=== PATIENT | female | born 1955 | race Caucasian/White ===

== ENCOUNTER 2018-11-30 05:39 | Outpatient (CLI) | payer MEDICARE, OTHER ==
[~2018-11-30] VITALS: Ht 165 cm; Wt 96.8 kg
[~2018-11-30 05:39] MED LIST: AMIT25TA9 PO; B/P MED; CALC-9 PO; CTLP20T PO; ENAL20TA PO; ETOD200C9 PO; ETOD400T PO; GABA-488 PO; LEVO75TA6 PO; LVT.05T PO; OMEG-109 PO; PRAV40TA2 PO; TRAZ150T42 PO
[2018-11-30] MEDS ORDERED: ENAL20TA PO (14:17)
[2018-11-30] MEDS ORDERED: BUPR150T7 PO (14:17)
[2018-11-30] MEDS ORDERED: ESCI10TA55 PO (14:17)
[2018-11-30] MEDS ORDERED: CYCL10TA9 PO (14:17)
[2018-11-30] MEDS ORDERED: GBPN600T PO (14:17)
[2018-11-30] MEDS ORDERED: HYDR12.5 PO (14:17)
[2018-11-30] MEDS ORDERED: PANT40TA3 PO (14:17)
[2018-11-30] MEDS ORDERED: HYDR-3816 PO (14:17)
[2018-11-30] MEDS ORDERED: TRAZ150T72 PO (14:17)
== END 2018-11-30 14:35 | disposition home or self-care (01) ==
LOC: PREOP 05:39
PROVIDERS: ATTEND Surgery
DX: Z01.818 Encounter for other preprocedural examination (principal)

== ENCOUNTER → 2018-12-07 | Day surgery (SDC) | payer MEDICARE, OTHER ==
[~2018-12-07] VITALS: Ht 165 cm; Wt 96.8 kg
[~2018-12-07] MED LIST changes: +BUPR150T7 PO; +CYCL10TA9 PO; +ESCI10TA55 PO; +GBPN600T PO; +HURRICAINE EXT TUBE (BENZOCAINE) ONE; +HURRICAINE EXT TUBE (BENZOCAINE) XX PRN; +HYDR-3816 PO; +HYDR12.5 PO; +LACTATED RINGERS 1,000 ML IV ONE; +LACTATED RINGERS 1,000 ML IV SCH; +LACTATED RINGERS 1,000 ML IV STA; +MIDAZOLAM 2 MG/2 ML (VERSED) VIAL ONE; +PANT40TA3 PO; +PROPOFOL INJECTION 50 ML IV ONE; +SUCR1TAB36 PO; +TRAZ150T72 PO
[2018-12-07 09:45] VITALS: BP 131/94
--- NOTE | 2018-12-07 10:45 | Progress Note-Pre Operative ---
Pre-Operative Progress Note H&P Reviewed The H&P was reviewed, patient examined and no changes noted. Date Seen by Provider: Dec 07, 2018 Time Seen by Provider: 10:44 Date H&P Reviewed: Dec 07, 2018 Time H&P Reviewed: 10:44 Pre-Operative Diagnosis: dysphagia, gerd QUINCY FIGUEROA DO Dec 07, 2018 10:45
--- NOTE | 2018-12-07 11:56 | Progress Note-Pre Operative ---
Pre-Operative Progress Note H&P Reviewed The H&P was reviewed, patient examined and no changes noted. Date Seen by Provider: Dec 07, 2018 Time Seen by Provider: 11:55 Date H&P Reviewed: Dec 07, 2018 Time H&P Reviewed: 11:55 Pre-Operative Diagnosis: dysphagis, gerd QUINCY FIGUEROA DO Dec 07, 2018 11:56
[2018-12-07 12:15] VITALS: BP 156/79
--- NOTE | 2018-12-07 12:17 | Progress Note-Post Operative ---
Post-Operative Progess Note Surgeon (s)/Offset Printing Pressmen (s) Surgeon QUINCY FIGUEROA DO Offset Printing Pressmen: NA Pre-Operative Diagnosis dysphagis, gerd Post-Operative Diagnosis Hiatal Hernia Procedure & Operative Findings Date of Procedure 12/07/18 Procedure Performed/Findings EGD and Biopsy at Antrum and GE junction Anesthesia Type Per INDUSTRIAL SPECIALIST Estimated Blood Loss Estimated blood loss (mL): none Specimens/Packing Specimens Removed Biopsy of antrum and GE junction QUINCY FIGUEROA DO Dec 07, 2018 12:17
--- NOTE | 2018-12-07 12:19 | Discharge Inst-Simple/Standard ---
Discharge Inst-Standard Patient Instructions/Follow Up Plan of Care/Instructions/FU: 2 weeks Daryn Activity as Tolerated: Yes Discharge Diet: Regular Diet QUINCY FIGUREOA DO Dec 07, 2018 12:19
[2018-12-07 12:20] VITALS: BP 157/88
[2018-12-07 12:25] VITALS: BP 168/91
[2018-12-07 12:45] VITALS: BP 177/94
--- NOTE | 2018-12-07 12:50 | Anesthesia-General Post-Op ---
MAC Patient Condition Mental Status/LOC: Same as Preop Cardiovascular: Satisfactory Nausea/Vomiting: Absent Respiratory: Satisfactory Pain: Controlled Complications: Absent Post Op Complications Complications None Follow Up Care/Instructions Patient Instructions None needed. Anesthesiology Discharge Order Discharge Order Patient is doing well, no complaints, stable vital signs, no apparent adverse anesthesia problems. No complications reported per nursing. MERY GREGORY CRNA Dec 07, 2018 12:50
[2018-12-07 13:00] VITALS: BP 177/94
--- NOTE | 2018-12-07 19:18 | OPERATIVE REPORT ---
DATE OF SERVICE: 12/07/2018 PREOPERATIVE DIAGNOSES: Dysphagia, gastroesophageal reflux disease. POSTOPERATIVE DIAGNOSIS: Hiatal hernia. PROCEDURE: EGD with biopsy of the antrum and GE junction. SURGEON: Quincy Stearns DO ANESTHESIA: Per MUSEUM EXHIBIT DESIGNER. ESTIMATED BLOOD LOSS: None. COMPLICATIONS: None. INDICATIONS: The patient is a 63-year-old female with dysphagia and GERD. She understands risks and benefits of procedure and wished to proceed with procedure. Consent was signed in the chart. DESCRIPTION OF PROCEDURE: The patient was taken to the endoscopy suite, placed in left lateral recumbent position. Timeout was performed. Scope was inserted in the mouth, down the esophagus, stomach and into the duodenum without difficulty. There were no polyps, masses or ulcerations within the duodenum. Scope was then slowly retracted back into the stomach, which was further insufflated. Stomach had normal appearance. No polyps, masses or ulcerations. Biopsy of the antrum was obtained. Scope was retroflexed noting a moderate to large hiatal hernia, no other pathology noted. Scope was returned to its normal position, slowly withdrawn to the distal esophagus, which had normal appearance. Biopsy of the GE junction was obtained. Scope was then slowly retracted back. There were no polyps, masses or ulcerations within the remainder of the esophagus. Scope was slowly retracted back to completely remove noting no other pathology. RECOMMENDATIONS: We will add Carafate 1 gram four times a day. We will see her back in the office in two to three weeks to see how she is doing at that time and follow up on biopsies. Further recommendations pending biopsy results. Job ID: [id number] DocumentID: [id number] Dictated Date: 12/07/2018 12:26:27 Consumer Recruiter Date: 12/07/2018 16:33:15 Dictated By: QUINCY STEARNS DO
== END ==
LOC: ENDO 09:20
PROVIDERS: ATTEND Surgery
DX: K21.9 Gastro-esophageal reflux disease without esophagitis (principal); K44.9 Diaphragmatic hernia without obstruction or gangrene; I10 Essential (primary) hypertension; E66.9 Obesity, unspecified; F32.9 Major depressive disorder, single episode, unspecified; F41.9 Anxiety disorder, unspecified; G47.33 Obstructive sleep apnea (adult) (pediatric); Z79.899 Other long term (current) drug therapy; Z83.3 Family history of diabetes mellitus; Z82.49 Family history of ischemic heart disease and other diseases of the circulatory system; Z90.49 Acquired absence of other specified parts of digestive tract; Z68.36 Body mass index [BMI] 36.0-36.9, adult; Z79.891 Long term (current) use of opiate analgesic

== ENCOUNTER → 2019-01-14 | Outpatient (CLI) | payer MEDICARE, OTHER ==
[~2019-01-14] MED LIST changes: -HURRICAINE EXT TUBE (BENZOCAINE) ONE; -HURRICAINE EXT TUBE (BENZOCAINE) XX PRN; -LACTATED RINGERS 1,000 ML IV ONE; -LACTATED RINGERS 1,000 ML IV SCH; -LACTATED RINGERS 1,000 ML IV STA; -MIDAZOLAM 2 MG/2 ML (VERSED) VIAL ONE; -PROPOFOL INJECTION 50 ML IV ONE
--- NOTE | 2019-01-14 12:17 | Diagnostic Imaging Report ---
EXAM: Modified swallow INDICATION: Difficulty swallowing This exam is performed with the presence of the speech pathologist, Lilly. COMPARISON: There are no prior studies available for comparison. FINDINGS: The patient was given barium and different substances to swallow. This included honey, nectar, thin, barium and applesauce, barium and banana, barium and ground beef and barium on a cracker. She was able swallow the materials without difficulty. There was no aspiration or penetration. IMPRESSION: The swallowing mechanism is within normal limits. There is no evidence for aspiration or penetration. Dictated by: Dictated on workstation # [id number]
== END ==
LOC: RAD 09:49
PROVIDERS: ATTEND Surgery
DX: R13.10 Dysphagia, unspecified (principal)
CPT/HCPCS: 74230

== ENCOUNTER → 2019-04-13 | Outpatient (CLI) | payer MEDICARE, OTHER ==
--- NOTE | 2019-04-13 09:22 | Diagnostic Imaging Report ---
INDICATION: Routine screening. Comparison is made with prior mammogram from 02/15/2015 and 09/08/2012. 2-D and 3-D bilateral screening mammography was performed with CAD. Scattered fibroglandular densities are identified bilaterally. Occasional benign-appearing calcifications are identified. No mass or malignant appearing microcalcifications are seen. Axillae are unremarkable. IMPRESSION: BI-RADS Category 2 No mammographic features suspicious for malignancy are identified. ACR BI-RADS Category 2: Benign findings. Result letter will be mailed to the patient. Note: At least 10% of breast cancer is not imaged by mammography. Dictated by: Dictated on workstation # [id number]
== END ==
LOC: RAD 07:21
PROVIDERS: ATTEND Nurse Practitioner Primary Care
DX: Z12.31 Encounter for screening mammogram for malignant neoplasm of breast (principal)
CPT/HCPCS: 77067

== ENCOUNTER → 2019-05-17 | Outpatient (CLI) | payer MEDICARE, OTHER ==
[~2019-05-17] MED LIST changes: +HYDR-34 PO; -HYDR-3816 PO
--- NOTE | 2019-05-17 12:25 | Diagnostic Imaging Report ---
INDICATION: Postmenopausal state. COMPARISON: None available, baseline exam. FINDINGS: AP Spine L1-L4: [BMD (g/cm2): 1.420] [T-Score: 1.85] [Z-Score: 2.3] [BMD Previous: NA] [BMD % Change: NA] LT Hip Neck: [BMD (g/cm2): 1.078] [T-Score: 0.3] [Z-Score: 1.0] LT Hip Total: [BMD (g/cm2):1.102] [T-Score:0.8] [Z-Score: 1.2] [BMD Previous: NA] [BMD % Change: NA] RT Hip Neck: [BMD (g/cm2):1.003] [T-Score:-0.3] [Z-Score:0.5] RT Hip Total: [BMD (g/cm2):1.118] [T-score:0.9] [Z-Score:1.3] [BMD Previous:NA] [BMD % Change:NA] *Indicates significant change from prior examination based on 95% confidence level. World Health Organization criteria for BMD interpretation classify patients as Normal (T-score at or above -1.0), Osteopenic (T-score between -1.0 and -2.5) or Osteoporotic (T-score at or below -2.5). LIMITATIONS AND MODIFICATION: None. IMPRESSION: 1. Normal bone mineral density. 2. Baseline examination. 3. See below National Osteoporosis Foundation guidelines on when to potentially initiate pharmacologic therapy. Based on the National Osteoporosis Foundation Guidelines, pharmacologic treatment should be initiated in any of the following, unless clinical conditions suggest otherwise: * Any patient with prior fragility fracture of the hip or vertebrae. A spine fracture indicates 5X risk for subsequent spine fracture and 2X risk for subsequent hip fracture. * Osteoporosis (T-score <-2.5). * Postmenopausal women and men age 50 and older with low bone mass/osteopenia (T-score between -1.0 and -2.5) by DXA and 10-year major osteoporotic fracture greater than 20% or a 10-year probability of hip fracture greater than 3%. These fracture risks are supplied above in the FRAX score, if applicable. * Clinician judgement and/or patient preferences may indicate treatment for people with 10-year fracture probabilities above or below these levels. Dictated by: Dictated on workstation # [id number]
== END ==
LOC: RAD 11:24
PROVIDERS: ATTEND Nurse Practitioner Primary Care
DX: N95.9 Unspecified menopausal and perimenopausal disorder (principal)
CPT/HCPCS: 77080

== ENCOUNTER 2020-01-11 05:30 | Outpatient (RCR) | payer MEDICARE, OTHER ==
[~2020-01-11] VITALS: Ht 165 cm; Wt 90.9 kg
[~2020-01-11 05:30] MED LIST changes: +ENAL20TA16 PO; +HYDR-3820 PO; +HYDR12.56 PO; +LOSA25TA41 PO; -PANT40TA3 PO; +PANT40TA52 PO; +POTA10TA36 PO
== END 2020-01-11 09:44 | disposition home or self-care (01) ==
LOC: PREOP 05:30
PROVIDERS: ATTEND Specialist
DX: Z01.812 Encounter for preprocedural laboratory examination (principal); Z20.828 Contact with and (suspected) exposure to other viral communicable diseases
CPT/HCPCS: 87635

== ENCOUNTER 2020-01-13 06:13 | Day surgery (SDC) | payer MEDICARE, OTHER ==
[~2020-01-13] VITALS: Ht 165 cm; Wt 90.9 kg
[2020-01-13 06:15] VITALS: BP 134/81
[2020-01-13] MEDS ORDERED: MOXIFLOXACIN OPHTH SOLN 5 MG/ML 0.3 ML SYRINGE OP ONE (06:15)
[2020-01-13] MEDS ORDERED: LIDOCAINE PF 1% 2 ML VIAL IR PRN (06:15)
[2020-01-13] MEDS ORDERED: TIMOLOL MALEATE 0.5% 5 ML (TIMOPTIC) BTL OU PRN (06:15)
[2020-01-13] MEDS ORDERED: POVIDONE (BETADINE) OPHTH SOLN 5% 30 ML OP ONE (06:15)
[2020-01-13] MEDS: TETRACAINE 0.5% OPHTH SOLN 4 ML BTL (SINGLE DOSE ONLY) OU PRN ×4 (06:25→06:49)
[2020-01-13] MEDS: PHENYLEPHRINE 10% OPHTH (NEO-SYN) 5 ML BTL OU SCH ×3 (06:39→06:49)
[2020-01-13] MEDS ORDERED: METHYLERGONOVINE 0.2 MG/ML (METHERGINE) AMP ONE (06:39)
[2020-01-13] MEDS: TROPICAMIDE 1% OPH SOLN (MYDRIACYL) 15 ML BTL OP SCH ×3 (06:40→06:49)
[2020-01-13] MEDS ORDERED: MIDAZOLAM 2 MG/2 ML (VERSED) VIAL ONE (06:57)
--- NOTE | 2020-01-13 07:04 | Ophthalmologist Pre-Op Note ---
Pre-Operative Progress Note H&P Reviewed The H&P was reviewed, patient examined and no changes noted. Date H&P Reviewed: Jan 13, 2020 Time H&P Reviewed: 07:04 Pre-Op Dx Cataract, Left Eye KIMBERLY KEMP MD Jan 13, 2020 07:04
--- NOTE | 2020-01-13 07:26 | Ophthalmology Operative Report ---
Cataract removal/placement IOL PREOPERATIVE DIAGNOSIS: Cataract Left Eye POSTOPERATIVE DIAGNOSIS: Cataract Left Eye PROCEDURE: Cataract removal and placement of posterior chamber implant, left eye SURGEON: Curtis Kemp ANESTHESIA: Topical with sedation COMPLICATIONS: None ESTIMATED BLOOD LOSS: Minimal DESCRIPTION OF PROCEDURE: After proper informed consent was obtained, the patient, a 64 female, was taken to the Operating Room and the left eye was anesthetized with tetracaine. The left eye was then prepped and draped in the usual manner. A wire lid speculum was placed. A paracentesis was made at the left hand position. Preservative free lidocaine was injected into the anterior chamber followed by viscoelastic. A clear corneal incision was made in the temporal position. A capsulorrhexis was preformed and the central nuclear and cortical material were removed. The posterior capsule was polished and an Jose Antonio 11.5 AU00T0 was placed into the capsular bag. The residual viscoelastic was aspirated and balanced saline solution was injected into the anterior chamber. Moxifloxacin was injected into the anterior chamber. The wound was checked and found to be water tight. The patient tolerated the procedure well without complications. CURTIS KEMP MD Jan 13, 2020 07:26
[2020-01-13] MEDS ORDERED: acetaZOLAMIDE ER 500 MG CAP (DIAMOX SEQUELS) PO ONE (07:30)
[2020-01-13 07:35] VITALS: BP 124/89
--- NOTE | 2020-01-13 12:17 | Anesthesia-General Post-Op ---
MAC Patient Condition Mental Status/LOC: Same as Preop Cardiovascular: Satisfactory Nausea/Vomiting: Absent Respiratory: Satisfactory Pain: Controlled Complications: Absent Post Op Complications Complications None Follow Up Care/Instructions Patient Instructions None needed. Anesthesiology Discharge Order Discharge Order Patient is doing well, no complaints, stable vital signs, no apparent adverse anesthesia problems. No complications reported per nursing. MARIANELA LUDWIG CRNA Jan 13, 2020 12:17
== END 2020-01-13 07:35 | disposition home or self-care (01) ==
LOC: SDC 06:13
PROVIDERS: ATTEND Specialist
DX: H25.12 Age-related nuclear cataract, left eye (principal); I10 Essential (primary) hypertension; G47.33 Obstructive sleep apnea (adult) (pediatric); E03.9 Hypothyroidism, unspecified; E78.00 Pure hypercholesterolemia, unspecified; Z79.899 Other long term (current) drug therapy; Z83.3 Family history of diabetes mellitus
CPT/HCPCS: 66984; V2632

== ENCOUNTER 2020-01-17 05:37 | Outpatient (RCR) | payer MEDICARE, OTHER | END 2020-01-17 11:01 | disposition home or self-care (01) | LOC: PREOP 05:37 | PROVIDERS: ATTEND Specialist | DX: Z01.812 Encounter for preprocedural laboratory examination (principal); Z20.828 Contact with and (suspected) exposure to other viral communicable diseases | CPT/HCPCS: 87635 ==

== ENCOUNTER 2020-01-20 06:36 | Day surgery (SDC) | payer MEDICARE, OTHER ==
[~2020-01-20] VITALS: Ht 165 cm; Wt 90.9 kg
[2020-01-20 07:00] VITALS: BP 174/92
[2020-01-20] MEDS ORDERED: TIMOLOL MALEATE 0.5% 5 ML (TIMOPTIC) BTL OU PRN (07:00)
[2020-01-20] MEDS ORDERED: POVIDONE (BETADINE) OPHTH SOLN 5% 30 ML OP ONE (07:00)
[2020-01-20] MEDS ORDERED: MOXIFLOXACIN OPHTH SOLN 5 MG/ML 0.3 ML SYRINGE OP ONE (07:00)
[2020-01-20] MEDS ORDERED: LIDOCAINE PF 1% 2 ML VIAL IR PRN (07:00)
[2020-01-20] MEDS ORDERED: MIDAZOLAM 2 MG/2 ML (VERSED) VIAL ONE (07:01)
--- NOTE | 2020-01-20 07:07 | Ophthalmologist Pre-Op Note ---
Pre-Operative Progress Note H&P Reviewed The H&P was reviewed, patient examined and no changes noted. Date H&P Reviewed: Jan 20, 2020 Time H&P Reviewed: 07:07 Pre-Op Dx Cataract, Right Eye KIMBERLY KEMP MD Jan 20, 2020 07:07
[2020-01-20] MEDS: TETRACAINE 0.5% OPHTH SOLN 4 ML BTL (SINGLE DOSE ONLY) OU PRN ×4 (07:12→07:32)
[2020-01-20] MEDS: PHENYLEPHRINE 10% OPHTH (NEO-SYN) 5 ML BTL OU SCH ×3 (07:22→07:32)
[2020-01-20] MEDS: TROPICAMIDE 1% OPH SOLN (MYDRIACYL) 15 ML BTL OP SCH ×3 (07:22→07:32)
[2020-01-20] MEDS ORDERED: acetaZOLAMIDE ER 500 MG CAP (DIAMOX SEQUELS) PO ONE (08:00)
--- NOTE | 2020-01-20 08:34 | Ophthalmology Operative Report ---
Cataract removal/placement IOL PREOPERATIVE DIAGNOSIS: Cataract Right Eye POSTOPERATIVE DIAGNOSIS: Cataract Right Eye PROCEDURE: Cataract removal and placement of posterior chamber implant, right eye SURGEON: Curtis Kemp ANESTHESIA: Topical with sedation COMPLICATIONS: None ESTIMATED BLOOD LOSS: Minimal DESCRIPTION OF PROCEDURE: After proper informed consent was obtained, the patient, a 64 female, was taken to the Operating Room and the right eye was anesthetized with tetracaine. The right eye was then prepped and draped in the usual manner. A wire lid speculum was placed. A paracentesis was made at the left hand position. Preservative free lidocaine was injected into the anterior chamber followed by viscoelastic. A clear corneal incision was made in the temporal position. A capsulorrhexis was preformed and the central nuclear and cortical material were removed. The posterior capsule was polished and Jose Antonio 11.5 AU00T0 IOL was placed into the capsular bag. The residual viscoelastic was aspirated and balanced saline solution was injected into the anterior chamber. Moxifloxacin was injected into the anterior chamber. The wound was checked and found to be water tight. The patient tolerated the procedure well without complications. CURTIS KEMP MD Jan 20, 2020 08:34
[2020-01-20 08:45] VITALS: BP 169/88
--- NOTE | 2020-01-20 09:55 | Anesthesia-General Post-Op ---
MAC Patient Condition Mental Status/LOC: Same as Preop Cardiovascular: Satisfactory Nausea/Vomiting: Absent Respiratory: Satisfactory Pain: Controlled Complications: Absent Post Op Complications Complications None Follow Up Care/Instructions Patient Instructions None needed. Anesthesiology Discharge Order Discharge Order Patient is doing well, no complaints, stable vital signs, no apparent adverse anesthesia problems. No complications reported per nursing. MERY GREGORY CRNA Jan 20, 2020 09:55
== END 2020-01-20 11:04 | disposition home or self-care (01) ==
LOC: SDC 06:36
PROVIDERS: ATTEND Specialist
DX: H25.11 Age-related nuclear cataract, right eye (principal); I10 Essential (primary) hypertension; K21.9 Gastro-esophageal reflux disease without esophagitis; E03.9 Hypothyroidism, unspecified; E78.00 Pure hypercholesterolemia, unspecified; Z79.899 Other long term (current) drug therapy; Z83.3 Family history of diabetes mellitus
CPT/HCPCS: 66984; V2632

== ENCOUNTER → 2020-05-09 | Outpatient (CLI) | payer MEDICARE, OTHER ==
[~2020-05-09] MED LIST changes: +BUPR150T24 PO; -BUPR150T7 PO; +ESCI-2 PO; -ESCI10TA55 PO
--- NOTE | 2020-05-09 08:09 | Diagnostic Imaging Report ---
EXAMINATION: Lumbar spine at 736h. INDICATION: Back pain 3 views were obtained. There are no prior studies available for comparison. There has been prior posterior fusion at L4 and L5. The bilateral pedicle screws seen intact as does the inter body device. There is no fracture or acute bony abnormality identified. However there is at least moderate narrowing of the disc spaces at L3-L4 and L5-S1. The other intervertebral spaces are fairly well-maintained although there is minimal retrolisthesis of L3 with respect to L4 and of L2 with respect to L3. There is no sign of a paraspinal mass. There is mild symmetrical sclerosis of the sacroiliac joints. Impression: 1. There is no evidence for acute bony abnormality. 2. The postsurgical changes at L4-L5 appear stable. 3. If clinical concern regarding an underlying abnormality persists, then MRI would be recommended for additional study. Dictated by: Dictated on workstation # [id number]
--- NOTE | 2020-05-09 08:18 | Diagnostic Imaging Report ---
Right hip at 736 Indication: Hip pain AP and lateral views were obtained. There are no prior studies available for comparison. There is no fracture, dislocation or acute bony abnormality evident. There is at least moderate degenerative disease of the hip joint. Moderate sclerosis of the right sacroiliac joint is noted as well. The soft tissues are unremarkable. IMPRESSION: 1. There is no evidence for an acute bony abnormality. 2. There is at least moderate degenerative disease of the hip joint. Dictated by: Dictated on workstation # [id number]
== END ==
LOC: RAD 07:03
PROVIDERS: ATTEND Nurse Practitioner Family
DX: M16.11 Unilateral primary osteoarthritis, right hip (principal)
CPT/HCPCS: 72100; 73502

== ENCOUNTER → 2020-09-22 | Outpatient (CLI) | payer MEDICARE, OTHER ==
[~2020-09-22] MED LIST changes: -ETOD400T PO; +ETOD400T3 PO
--- NOTE | 2020-09-22 14:45 | Diagnostic Imaging Report ---
CLINICAL HISTORY: Left heel pain. COMPARISON: None. TECHNIQUE: 2 views of the left heel. FINDINGS: There is no acute fracture or dislocation of the left calcaneus. A bone spur is seen off the plantar surface of the left calcaneus. IMPRESSION: 1. No acute fracture or dislocation in the left calcaneus. 2. Bone spur along the plantar surface of the left calcaneus. Dictated by: Dictated on workstation # [id number]
== END ==
LOC: RAD 13:53
PROVIDERS: ATTEND Nurse Practitioner Family
DX: M77.32 Calcaneal spur, left foot (principal)
CPT/HCPCS: 73650

== ENCOUNTER → 2020-10-24 | Outpatient (CLI) | payer MEDICARE, OTHER ==
--- NOTE | 2020-10-24 18:45 | Diagnostic Imaging Report ---
EXAMINATION: PA and lateral chest at 6:25 p.m. INDICATION: Cough, history of Covid. There are no prior studies available for comparison. The heart size is within normal limits. There are alveolar/interstitial infiltrates involving both lungs, particularly the right lung. These findings are most likely due to pneumonia/atelectasis and may well be related to the patient's diagnosis of Covid 19. There is no significant pleural effusion identified. The mediastinum is not widened but there is a prominent air-fluid level in the retrocardiac region. I suspect this is secondary to a hiatal hernia. If further study is desired, then CT of the chest would be recommended. The osseous structures are intact. IMPRESSION: 1. There are alveolar/interstitial pulmonary infiltrates involving both lungs, particularly the right lung. These findings are most likely due to pneumonia/atelectasis may well be related to the patient's diagnosis of Covid 19. Clinical follow up is recommended. 2. There does appear to be a large hiatal hernia. Dictated by: Dictated on workstation # [id number]
== END ==
LOC: RAD 18:06
PROVIDERS: ATTEND Family Medicine
DX: R91.8 Other nonspecific abnormal finding of lung field (principal); Z86.16 Personal history of COVID-19
CPT/HCPCS: 71046

== ENCOUNTER → 2020-11-01 | Outpatient (CLI) | payer MEDICARE, OTHER ==
--- NOTE | 2020-11-01 15:40 | Diagnostic Imaging Report ---
INDICATION: Covid 19 pneumonia. TIME OF EXAM: 3:32 p.m. Correlation is made with prior chest 10/24/2020. Heart size is normal. Bilateral pulmonary infiltrates do show partial clearing since the prior exam. Minimal infiltrates remain in the right base. No effusion is seen. There is no pneumothorax. IMPRESSION: Partial clearing of bilateral pulmonary infiltrates when compared with examination from 10/24/2020. Dictated by: Dictated on workstation # [id number]
== END ==
LOC: RAD 15:11
PROVIDERS: ATTEND Nurse Practitioner Family
DX: R91.8 Other nonspecific abnormal finding of lung field (principal); U07.1 COVID-19; J12.82 Pneumonia due to coronavirus disease 2019
CPT/HCPCS: 71046

== ENCOUNTER → 2020-11-15 | Outpatient (CLI) | payer MEDICARE, OTHER ==
--- NOTE | 2020-11-15 19:31 | Diagnostic Imaging Report ---
INDICATION: Covid infection, follow-up. EXAMINATION: PA and lateral views of the chest were obtained at 6:56 p.m. COMPARISON: 11/01/2020. FINDINGS: The heart is mildly enlarged. There is some vascular congestion noted. Diffuse interstitial changes remain present and may be the residual of previous infection. There is no consolidation, pneumothorax or pleural fluid. There is a prominent hiatal hernia with air-fluid level in the retrocardiac region. IMPRESSION: There is some vascular congestion noted. There is diffuse interstitial prominence which may be the sequelae of previous infection. There is no new consolidation or pleural fluid. There is a prominent hiatal hernia. Dictated by: Dictated on workstation # [id number]
== END ==
LOC: RAD 18:32
PROVIDERS: ATTEND Nurse Practitioner Family
DX: U07.1 COVID-19 (principal); J12.82 Pneumonia due to coronavirus disease 2019; K44.9 Diaphragmatic hernia without obstruction or gangrene
CPT/HCPCS: 71046

== ENCOUNTER 2021-07-07 15:06 | Inpatient (IN) | payer MEDICARE, OTHER ==
[~2021-07-07] VITALS: Ht 165.1 cm; Wt 100.0 kg
[~2021-07-07 15:06] MED LIST changes: +CYCL10TA25 PO; -CYCL10TA9 PO; -POTA10TA36 PO; +POTA10TA37 PO
[2021-07-07] MEDS ORDERED: IBUPROFEN 800 MG (MOTRIN) TAB PO STA (15:24)
--- NOTE | 2021-07-07 15:28 | ED General ---
General Chief Complaint: General Problems/Pain Stated Complaint: WEAKNESS/DIZZINESS Source of Information: Patient, EMS History of Present Illness Date Seen by Provider: July 07, 2021 Time Seen by Provider: 15:15 Initial Comments PT ARRIVES VIA EMS FROM HOME--PT LIVES ALONE C/O GENERALIZED WEAKNESS C/O SORE THROAT DENIES SHORTNESS OF BREATH--BUT O2 SATS IN 80'S FOR EMS--UP TO MID 90'S ON O2 AT 2L/NC C/O HEADACHE HAD FEVER FOR EMS--PT HAS NOT CHECKED TEMP AT HOME TRIPPED AND FELL A COUPLE OF DAYS AGO AND LANDED ON LEFT RIBS AND LEFT ARM--DID NOT HIT HEAD OR HAVE LOSS OF CONSCIOUSNESS DENIES ANY LEFT ARM PAIN OTHER THAN MILD SORENESS FROM BRUISE ONLY. DENIES ANY CHEST PAIN OR ABDOMINAL PAIN DENIES NAUSEA/VOMITING/DIARRHEA DENIES COUGH DENIES URINARY SYMPTOMS PT HAS NOT HAD COVID OR FLU VACCINES HAD COVID PNEUMONIA 10/2020--NO HOSPITALIZATION PCP: DR. WHARTON Allergies and Home Medications Allergies Coded Allergies: No Known Drug Allergies (Unverified , 01/10/20) Patient Home Medication List Home Medication List Reviewed: Yes Amlodipine Besylate (Amlodipine Besylate) 5 Mg Tablet, 5 MG PO DAILY Prescribed by: AKIRA WHARTON on 07/10/21932 Ascorbate Calcium (Vitamin C) 500 Mg Tablet, 500 MG PO 1200, (Reported) Entered as Reported by: MARIMAR CHRISTINE on 07/09/211213 Last Action: Held Azithromycin (Azithromycin) 250 Mg Tablet, 250 MG PO DAILY@1100 Prescribed by: AKIRA WHARTON on 07/10/21932 Cefdinir (Cefdinir) 300 Mg Capsule, 300 MG PO BID Prescribed by: AKIRA WHARTON on 07/10/21932 Cholecalciferol (Vitamin D3) (Vitamin D3) 25 Mcg (1000 Unit) Capsule, 25 MCG PO 1200, (Reported) Entered as Reported by: MARIMAR CHRISTINE on 07/09/21 121 Last Action: Held Ergocalciferol (Vitamin D2) (Vitamin D2) 1,250 Mcg (53617 Unit) Capsule, 1,250 MCG PO SUN, (Reported) Entered as Reported by: MARIMAR CHRISTINE on 07/09/211213 Last Action: Held Escitalopram Oxalate (Escitalopram Oxalate) 10 Mg Tablet, 10 MG PO HS, (Reported) Entered as Reported by: IAN FONTAINE on 11/30/18 1417 Last Action: Reviewed Gabapentin (Gabapentin) 600 Mg Tablet, 600 MG PO QID PRN for PAIN-BREAKTHROUGH, (Reported) Entered as Reported by: IAN FONTAINE on 11/30/18 141 Last Action: Continued Hydrocodone/Acetaminophen (Hydrocodone-Acetamin 10-325 mg) 1 Each Tablet, 1 EACH PO Q4H PRN for PAIN-MODERATE (5-7), (Reported) Entered as Reported by: IAN FONTAINE on 01/10/20 1037 Last Action: Reviewed Lactobacillus Acidophilus/Pect (Acidophilus-Pectin Capsule) 75 Million Cell-100 Mg Capsule, 1 EACH PO TIDWM Prescribed by: AKIRA WHARTON on 07/10/21932 Levothyroxine Sodium (Levothyroxine Sodium) 75 Mcg Tablet, 75 MCG PO DAILY, (Reported) Entered as Reported by: KASEY MARTINEZ on 03/19/15 0934 Last Action: Held Losartan Potassium (Losartan Potassium) 25 Mg Tablet, 25 MG PO HS, (Reported) Entered as Reported by: AIN FONTAINE on 01/10/20 1037 Last Action: Reviewed Melatonin (Melatonin) 10 Mg Tablet, 10 MG PO HS, (Reported) Entered as Reported by: MARIMAR CHRISTINE on 07/09/21 1214 Last Action: Held Omeprazole Magnesium (Prilosec Otc) 20 Mg Tablet.dr, 20 MG PO HS, (Reported) Entered as Reported by: MARIMAR CHRISTINE on 07/09/21 1214 Last Action: Held Pantoprazole Sodium (Pantoprazole Sodium) 40 Mg Tablet.dr, 40 MG PO HS, (Reported) Entered as Reported by: IAN FONTAINE on 11/30/18 1417 Last Action: Reviewed Potassium Chloride (Potassium Chloride) 20 Meq Tab.er.prt, 20 MEQ PO DAILY Prescribed by: AKIRA WHARTON on 07/10/21932 Pravastatin Sodium (Pravastatin Sodium) 40 Mg Tablet, 40 MG PO HS, (Reported) Entered as Reported by: KASEY MARTINEZ on 03/19/15 0937 Last Action: Reviewed Trazodone HCl (Trazodone HCl) 150 Mg Tablet, 150 MG PO HS, (Reported) Entered as Reported by: IAN FONTAINE on 11/30/18 1417 Last Action: Held Discontinued Medications Bupropion HCl (Bupropion Xl) 150 Mg Tab.er.24h, 150 MG PO DAILY, (Reported) Discontinued Reason: No Longer Taking Entered as Reported by: IAN FONTAINE on 11/30/18 1417 Last Action: Discontinued Hydrochlorothiazide (Hydrochlorothiazide) 12.5 Mg Tablet, 12.5 MG PO DAILY, (Reported) Discontinued Reason: No Longer Taking Entered as Reported by: IAN FONTAINE on 01/10/20 1037 Last Action: Discontinued Potassium Chloride (Potassium Chloride) 10 Meq Tab.er.prt, 10 MEQ PO DAILY, (Reported) Discontinued Reason: No Longer Taking Entered as Reported by: IAN FONTAINE on 01/10/20 1037 Last Action: Discontinued Vitamin D (Vitamin D3) 10 Mcg (400 Unit) Tablet, 400 MCG PO 1200, (Reported) Discontinued Reason: Prescription changed Entered as Reported by: MARIMAR CHRISTINE on 07/09/21 1214 Last Action: New Order Review of Systems Review of Systems Constitutional: see HPI, fever, malaise, weakness EENTM: see HPI, throat pain Respiratory: see HPI; No cough, No short of breath Cardiovascular: see HPI; No chest pain Gastrointestinal: no symptoms reported; No abdominal pain, No diarrhea, No nausea, No vomiting Genitourinary: no symptoms reported; No decreased output, No dysuria Musculoskeletal: other (CHRONIC BACK AND KNEE PAIN, UNCHANGED) Skin: no symptoms reported; No rash Psychiatric/Neurological: See HPI, Headache; Denies Numbness, Denies Paresthesia, Denies Tingling, Denies Weakness Hematologic/Lymphatic: No Symptoms Reported Immunological/Allergic: no symptoms reported Past Qfndhri-Puvijr-Dhfaig Hx Patient Social History Tobacco Use?: No Use of E-Cig and/or Vaping dev: No Substance use?: No Alcohol Use?: No Pt feels they are or have been: No Immunizations Up To Date Influenza Vaccine Up-to-Date: No; Not Current Seasonal Allergies Seasonal Allergies: No Past Medical History Surgery/Hospitalization HX: HTN, DM, THYROID SX- KNEE, BACK, [facility] Surgeries: Yes (RIGHT KNEE ARTHROSCOPY, BILAT BUNIONECTOMY, LEFT HEEL SPUR) Eye Surgery, Gallbladder, Orthopedic Respiratory: Yes (COVID PNEUMONIA 10/2020--NO HOSPITALIZATION) Pneumonia, Sleep Apnea Currently Using CPAP: Yes Cardiac: Yes (MITRAL VALVE PROLAPSE PAST HX) High Cholesterol, Hypertension Neurological: Yes (PAST HX OF MIGRAINES) Headaches /Migraines [employer]IAN History: Menopausal Sexually Transmitted Disease: No HIV/AIDS: No Genitourinary: No Gastrointestinal: Yes (SPASTIC COLON) Gastroesophageal Reflux, Hiatal Hernia, Irritable Bowel Musculoskeletal: Yes (RIGHT HIP PAIN;BACK SX/SPINAL STENOSIS;CHRONIC KNEE PAIN- OPIATE DEPENDENT) Arthritis, Chronic Back Pain Endocrine: Yes Hypothyroidsim HEENT: Yes (GLASSES) Loss of Vision: Denies Hearing Impairment: Denies Cancer: No Psychosocial: Yes Anxiety, Depression Integumentary: No Blood Disorders: No Adverse Reaction/Blood Tranf: No (N/A) Family Medical History SOCIAL HISTORY: PAST SURGICAL HISTORY: -BILATERAL CATARACTS 01/2020 -EGD 12/2018 -COLONOSCOPY 03/2015 -CHOLECYSTECTOMY -BACK SURGERY -R KNEE SURGERY/ARTHROSCOPY 2019 -BILATERAL BUNIONECTOMY -LEFT HEEL SPUR Physical Exam Vital Signs Vital Signs - First Documented 07/07/21 15:09 Temp 37.9 Pulse 118 Resp 20 B/P (MAP) 148/94 (112) Pulse Ox 97 O2 Delivery Nasal Cannula O2 Flow Rate 2.00 Capillary Refill : Height, Weight, BMI Height: 5'5.00" Weight: 230lbs. oz. 104.074035zr; 35.55 BMI Method:Stated General Appearance: No Apparent Distress, WD/WN, Other (LETHARGIC, KEEPS EYES CLOSED, BUT DOES NOT APPEAR TO BE IN ANY DISCOMFORT OR DISTRESS. 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 II- XII Norm as Tested, Other (LETHARGIC) Skin: Normal Color, Warm/Dry, Ecchymosis (BRUISE TO LEFT UPPER ARM); No Rash Focused Exam Sepsis Stage: Sepsis Possible Source: Pulmonary Lactate Level 07/07/21 15:24: Lactic Acid Level 1.04 Time of Focused Exam: 16:45 Respiratory: Normal Breath Sounds, No Accessory Muscle Use, No Respiratory Distress Cardiovascular: Regular Rate, Rhythm, No Murmur Capillary Refill: Less Than 3 Seconds Skin: normal color, damp (TEMP COMING DOWN WITH TYLENOL AND MOTRIN AND NOW PT BEGINNING TO SWEAT) Lactic Acid Level Laboratory Tests Test 07/07/21 15:24 Lactic Acid Level 1.04 MMOL/L (0.50-2.00) Within 3hrs of presentation: Admin fluids, Admin ABX, Blood cultures prior to ABX's, Focus exam, Lactate level Progress/Results/Core Measures Suspected Sepsis SIRS Temperature: Pulse: Respiratory Rate: Blood Pressure / Mean: 07/07/21 15:24: Lactic Acid Level 1.04 Laboratory Tests 07/07/21 15:21: INR Comment 1.0 Results/Orders Lab Results Laboratory Tests Test 07/07/21 15:16 07/07/21 15:21 07/07/21 15:24 07/07/21 15:25 Range/Units Influenza Type A (RT-PCR) Not Detected Not Detecte Influenza Type B (RT-PCR) Not Detected Not Detecte SARS-CoV-2 RNA (RT-PCR) Not Detected Not Detecte Group A Streptococcus Screen NEGATIVE NEGATIVE White Blood Count 19.2 H 4.3-11.0 10^3/uL Red Blood Count 3.32 L 3.80-5.11 10^6/uL Hemoglobin 10.2 L 11.5-16.0 g/dL Hematocrit 31 L 35-52 % Mean Corpuscular Volume 94 80-99 fL Mean Corpuscular Hemoglobin 31 25-34 pg Mean Corpuscular Hemoglobin Concent 33 32-36 g/dL Red Cell Distribution Width 13.5 10.0-14.5 % Platelet Count 252 130-400 10^3/uL Mean Platelet Volume 11.1 9.0-12.2 fL Immature Granulocyte % (Auto) 1 % Neutrophils (%) (Auto) 91 H 42-75 % Lymphocytes (%) (Auto) 3 L 12-44 % Monocytes (%) (Auto) 4 0-12 % Eosinophils (%) (Auto) 0 0-10 % Basophils (%) (Auto) 0 0-10 % Neutrophils # (Auto) 17.6 H 1.8-7.8 10^3/uL Lymphocytes # (Auto) 0.6 L 1.0-4.0 10^3/uL Monocytes # (Auto) 0.8 0.0-1.0 10^3/uL Eosinophils # (Auto) 0.1 0.0-0.3 10^3/uL Basophils # (Auto) 0.0 0.0-0.1 10^3/uL Immature Granulocyte # (Auto) 0.1 0.0-0.1 10^3/uL Neutrophils % (Manual) 84 % Lymphocytes % (Manual) 4 % Monocytes % (Manual) 3 % Eosinophils % (Manual) 0 % Basophils % (Manual) 0 % Band Neutrophils 9 % Blood Morphology Comment NORMAL Erythrocyte Sedimentation Rate 25 0-30 MM/HR Prothrombin Time 13.5 12.2-14.7 SEC INR Comment 1.0 0.8-1.4 Activated Partial Thromboplast Time 34 24-35 SEC D-Dimer 1.01 H 0.00-0.49 UG/ML Sodium Level 136 135-145 MMOL/L Potassium Level 3.3 L 3.6-5.0 MMOL/L Chloride Level 99 98-107 MMOL/L Carbon Dioxide Level 23 21-32 MMOL/L Anion Gap 14 5-14 MMOL/L Blood Urea Nitrogen 9 7-18 MG/DL Creatinine 0.74 0.60-1.30 MG/DL Estimat Glomerular Filtration Rate 89 BUN/Creatinine Ratio 12 Glucose Level 104 70-105 MG/DL Calcium Level 8.4 L 8.5-10.1 MG/DL Corrected Calcium 8.9 8.5-10.1 MG/DL Magnesium Level 1.5 L 1.6-2.4 MG/DL Total Bilirubin 0.5 0.1-1.0 MG/DL Aspartate Amino Transf (AST/SGOT) 21 5-34 U/L Alanine Aminotransferase (ALT/SGPT) 13 0-55 U/L Alkaline Phosphatase 110 40-136 U/L Lactate Dehydrogenase 264 H 125-220 U/L Total Creatine Kinase 50 29-168 U/L Creatine Kinase MB 0.3 <6.6 NG/ML Myoglobin 37.9 10.0-92.0 NG/ML Troponin I < 0.028 <0.028 NG/ML C-Reactive Protein High Sensitivity 11.36 H 0.00-0.50 MG/DL B-Type Natriuretic Peptide 37.7 <100.0 PG/ML Total Protein 6.2 L 6.4-8.2 GM/DL Albumin 3.4 3.2-4.5 GM/DL Amylase Level 14 L 25-125 U/L Lipase < 4 L 8-78 U/L Procalcitonin 0.45 H <0.10 NG/ML Lactic Acid Level 1.04 0.50-2.00 MMOL/L Urine Color YELLOW Urine Clarity CLEAR Urine pH 6.5 5-9 Urine Specific [place] 1.010 L 1.016-1.022 Urine Protein NEGATIVE NEGATIVE Urine Glucose (UA) NEGATIVE NEGATIVE Urine Ketones NEGATIVE NEGATIVE Urine Nitrite NEGATIVE NEGATIVE Urine Bilirubin NEGATIVE NEGATIVE Urine Urobilinogen 1.0 < = 1.0 MG/DL Urine Leukocyte Esterase NEGATIVE NEGATIVE Urine RBC (Auto) 1+ H NEGATIVE Urine RBC 2-5 H /HPF Urine WBC NONE /HPF Urine Squamous Epithelial Cells NONE /HPF Urine Crystals NONE /LPF Urine Bacteria NEGATIVE /HPF Urine Casts NONE /LPF Urine Mucus NEGATIVE /LPF Urine Culture Indicated CULTURE PENDING Test 07/07/21 16:48 Range/Units Lab Scanned Report Referred Lab Report [id number] Micro Results Microbiology 07/07/21 Blood Culture - Preliminary, Resulted No growth 07/07/21 Urine Culture - Final, Complete NO GROWTH 07/07/21 Blood Culture - Preliminary, Resulted No growth 07/07/21 Throat Culture - Final, Complete No Beta Strep isolated My Orders Orders - SUN DAVILA DO Ed Iv/Invasive Line Start (07/07/21 15:24) Ekg Tracing (07/07/21 15:24) O2 (07/07/21 15:24) Monitor-Rhythm Ecg Trace Only (07/07/21 15:24) Chest 1 View, Ap/Pa Only (07/07/21 15:24) Amylase (07/07/21 15:24) Bnp Jrarett (07/07/21 15:24) Cbc With Automated Diff (07/07/21 15:24) Comprehensive Metabolic Panel (07/07/21 15:24) Creatine Kinase (07/07/21 15:24) Creatine Kinase Mb (07/07/21 15:24) Hs C Reactive Protein (07/07/21 15:24) Fibrin Degradation Products (07/07/21 15:24) Lactic Acid Analyzer (07/07/21 15:24) Lipase (07/07/21 15:24) Magnesium (07/07/21 15:24) Protime With Inr (07/07/21 15:24) Partial Thromboplastin Time (07/07/21 15:24) Rapid Strep A Screen (07/07/21 15:24) Ua Culture If Indicated (07/07/21 15:24) Erythrocyte Sedimentation Rate (07/07/21 15:24) Myoglobin Serum (07/07/21 15:24) Troponin I [place] (07/07/21 15:24) Procalcitonin (Pct) (07/07/21 15:24) LDH (07/07/21 15:24) Covid 19 Inhouse Test (07/07/21 15:24) Blood Culture (07/07/21 15:24) Urine Culture (07/07/21 15:24) Acetaminophen Tablet (Tylenol Tablet) (07/07/21 15:30) Ed Iv/Invasive Line Start (07/07/21 15:24) Vital Signs Adult Sepsis Patie Q15M (07/07/21 15:24) O2 (07/07/21 15:24) Remove Rings In Anticipation O (07/07/21 15:24) Influenza A And B By Pcr (07/07/21 15:24) Isolation Central Supply Req (07/07/21 15:24) Ed Iv/Invasive Line Start (07/07/21 15:24) Lactated Ringers (Lr 1000 Ml Iv Solution (07/07/21 15:30) Ibuprofen Tablet (Motrin Tablet) (07/07/21 15:24) Manual Differential (07/07/21 15:21) Ct Head Wo (07/07/21 15:55) Ct Ama Chest/Noang Abd-Pelv W (07/07/21 15:56) Iohexol Injection (Omnipaque 350 Mg/Ml 1 (07/07/21 16:00) Received Contrast (Hold Metformin- Contr (07/07/21 16:00) Ns (Ivpb) (Sodium Chloride 0.9% Ivpb Bag (07/07/21 16:00) Ceftriaxone 1 Gm Pre-Mix (Rocephin 1 Gm (07/07/21 16:30) Azithromycin Injection (Zithromax Inject (07/07/21 16:30) Medications Given in ED Vital Signs/I&O 07/07/21 07/07/21 15:09 15:30 Temp 37.9 Pulse 118 Resp 20 B/P (MAP) 148/94 (112) Pulse Ox 97 97 O2 Delivery Nasal Cannula Nasal Cannula O2 Flow Rate 2.00 2.00 Capillary Refill : Progress Note : Progress Note SEPSIS PROTOCOL INITIATED GIVEN IV FLUIDS, TYLENOL AND MOTRIN GIVEN ROCEPHIN + ZITHROMAX O2 SATS 87-88% ON ROOM AIR, UP TO 97% ON 2L/NC NO DETERIORATION IN PT'S CONDITION DURING ER STAY PT WISHES TO BE A FULL CODE ECG Initial ECG Impression Date: July 07, 2021 Initial ECG Impression Time: 15:39 Initial ECG Rate: 113 Initial ECG Rhythm: S.Tach Initial ECG Impression: Nonspecific Changes Initial ECG Comparisson: No Previous ECG Available Diagnostic Imaging Comments CT HEAD--PER RADIOLOGIST REPORT AT 1638 Comparison: None. Discussion: No intracranial hemorrhage, mass, midline shift or hydrocephalus. The ventricles and sulci are normal size and configuration for age. The visualized orbits, paranasal sinuses, mastoid air cells and calvarium are unremarkable. Impression: Negative head CT. CT CHEST ANGIOGRAM/ABDOMEN-PELVIS--PER RADIOLOGIST REPORT AT 1645 COMPARISON: None. FINDINGS: CTA CHEST: The pulmonary arteries are diagnostic to the lobar level. No filling defects are seen to indicate emboli. There is mild cardiomegaly. The aorta may be mildly ectatic but no dissection or janet aneurysm is seen. No mediastinal adenopathy is appreciated. There is a large hiatal hernia. There is no axillary adenopathy. There are multifocal airspace consolidations in the left upper lobe with associated groundglass opacities. Additional groundglass opacities are seen about the lungs, bilaterally. There is no pleural effusion and no pneumothorax. No central endobronchial lesions are seen. There are degenerative changes in the spine. No acute osseous abnormality is seen. CT ABDOMEN AND PELVIS: The liver demonstrates no focal lesions. Cholecystectomy clips are noted. The spleen appears normal. The pancreas is mildly atrophic but otherwise unremarkable. The adrenal glands appear normal. The kidneys demonstrate no enhancing lesions. There is a simple appearing small cyst in the inferior right kidney. The bowel loops are nondistended without obstruction. The appendix is normal. Multiple hyperdensities are seen in the cecum, likely ingested medication. There is moderate stool in the colon. A Durand catheter is in the nondistended urinary bladder. No free fluid or free air is seen. No acute osseous abnormality is seen. There is posterior fusion of L4-L5. There are degenerative changes in the lumbar spine, most severe at L3-L4. IMPRESSION: 1. No pulmonary embolus. 2. Multifocal airspace consolidation in the left upper lobe with groundglass opacities, bilaterally. This is most compatible with pneumonia. Recommend follow-up to resolution to exclude underlying neoplasm. 3. Large hiatal hernia. CXR--PER RADIOLOGIST REPORT AT 6 Comparison: 11/15/2020. Discussion: Single portable upright view of the chest was obtained. Dense consolidation noted within the left mid to lower lung consistent with pneumonia. Hiatal hernia is noted. Normal heart size. The right lung is well-aerated. No pleural fluid or pneumothorax. No osseous abnormality. Impression: Severe consolidation within the left mid to lower lung consistent with pneumonia. Reviewed: Reviewed by Ut Departure Communication (Admissions) 1647--SPOKE WITH DR. BHATIA, HOSPITALIST FOR DR. WHARTON'S PATIENTS, ACCEPTS PT FOR ADMIT Impression Primary Impression: Sepsis Additional Impressions: PNEUMONIA WITH HYPOXIA Hypomagnesemia Hypokalemia Disposition: ADMITTED INPATIENT Condition: Stable Admissions Decision to Admit Reason: Admit from ER (General) Decision to Admit/Date: July 07, 2021 Time/Decision to Admit Time: 16:50 Departure-Patient Inst. Referrals: AKIRA WHARTON MD (PCP/Family) Primary Care Physician Scripts Cefdinir (Cefdinir) 300 Mg Capsule 300 MG PO BID, #10 CAP Prov: AKIRA WHARTON MD 07/10/21 Potassium Chloride (Potassium Chloride) 20 Meq Tab.er.prt 20 MEQ PO DAILY, #10 TAB Prov: AKIRA WHARTON MD 07/10/21 Lactobacillus Acidophilus/Pect (Acidophilus-Pectin Capsule) 75 Million Cell-100 Mg Capsule 1 EACH PO TIDWM, #90 CAP Prov: AKIRA WHARTON MD 07/10/21 Amlodipine Besylate (Amlodipine Besylate) 5 Mg Tablet 5 MG PO DAILY, #30 TAB 3 Refills Prov: AKIRA WHARTON MD 07/10/21 Azithromycin (Azithromycin) 250 Mg Tablet 250 MG PO DAILY@1100, #4 TAB Prov: AKIRA WHARTON MD 07/10/21 SUN DAVILA DO July 07, 2021 15:28
[2021-07-07] MEDS ORDERED: ACETAMINOPHEN 500 MG TAB (TYLENOL) PO PRN ×2 (15:30→17:45)
[2021-07-07] MEDS ORDERED: LACTATED RINGERS 1,000 ML IV ONE (15:30)
[2021-07-07 15:37] LABS: BASOPHILS % (AUTO) 0 % (0-10); EOSINOPHILS # (AUTO) 0.1 10^3/uL (0.0-0.3); EOSINOPHILS % (AUTO) 0 % (0-10); HEMATOCRIT 31 % (35-52); HEMOGLOBIN 10.2 g/dL (11.5-16.0); LYMPHOCYTES # (AUTO) 0.6 10^3/uL (1.0-4.0); LYMPHOCYTES % (AUTO) 3 % (12-44); MEAN CORPUSCULAR HEMOGLOBIN 31 pg (25-34); MEAN CORPUSCULAR HGB CONC 33 g/dL (32-36); MEAN CORPUSCULAR VOLUME 94 fL (80-99); MEAN PLATELET VOLUME 11.1 fL (9.0-12.2); MONOCYTES # (AUTO) 0.8 10^3/uL (0.0-1.0); MONOCYTES % (AUTO) 4 % (0-12); NEUTROPHILS # (AUTO) 17.6 10^3/uL (1.8-7.8); NEUTROPHILS % (AUTO) 91 % (42-75); PLATELET COUNT 252 10^3/uL (130-400); WHITE BLOOD COUNT 19.2 10^3/uL (4.3-11.0)
[2021-07-07 15:41] LABS: BILIRUBIN,URINE NEGATIVE (NEGATIVE); CLARITY,URINE CLEAR; COLOR,URINE YELLOW; GLUCOSE, URINE (UA) NEGATIVE (NEGATIVE); KETONES,URINE NEGATIVE (NEGATIVE); LEUKOCYTE ESTERASE ,URINE NEGATIVE (NEGATIVE); NITRITE,URINE NEGATIVE (NEGATIVE); PH,URINE 6.5 (5-9); PROTEIN,URINE NEGATIVE (NEGATIVE)
[2021-07-07 15:45] LABS: ALBUMIN 3.4 GM/DL (3.2-4.5); CHLORIDE 99 MMOL/L (98-107); POTASSIUM 3.3 MMOL/L (3.6-5.0); SODIUM 136 MMOL/L (135-145)
[2021-07-07 15:46] LABS: AMYLASE 14 U/L (25-125); CALCIUM 8.4 MG/DL (8.5-10.1); FIBRIN DEGRADATION PRODUCTS 1.01 UG/ML (0.00-0.49); PROTHROMBIN TIME PATIENT 13.5 SEC (12.2-14.7)
[2021-07-07 15:47] LABS: GLUCOSE 104 MG/DL (70-105)
[2021-07-07 15:48] LABS: TOTAL PROTEIN 6.2 GM/DL (6.4-8.2)
[2021-07-07 15:48] LABS: BACTERIA,URINE NEGATIVE /HPF
[2021-07-07 15:49] LABS: BILIRUBIN,TOTAL 0.5 MG/DL (0.1-1.0); CARBON DIOXIDE 23 MMOL/L (21-32)
[2021-07-07 15:51] LABS: ALKALINE PHOSPHATASE 110 U/L (40-136); CREATININE SERUM 0.74 MG/DL (0.60-1.30); GFR ESTIMATED 89
[2021-07-07 15:52] LABS: BUN/CREATININE RATIO 12
[2021-07-07 15:54] LABS: ALANINE AMINOTRANSFERASE 13 U/L (0-55); MAGNESIUM 1.5 MG/DL (1.6-2.4)
[2021-07-07 15:55] LABS: CREATINE KINASE 50 U/L (29-168); LIPASE < 4 U/L (8-78)
[2021-07-07 15:56] LABS: ERYTHROCYTE SEDIMENTATION RATE 25 MM/HR (0-30)
[2021-07-07] MEDS ORDERED: IOHEXOL 350 MG/ML 100 ML (OMNIPAQUE 350) VIAL IV ONE (16:00)
[2021-07-07] MEDS ORDERED: NS 100 ML (IVPB) BAG IV ONE (16:00)
[2021-07-07] MEDS ORDERED: HOLD METFORMIN - RECEIVED CONTRAST 20 ML VIAL IV SCH (16:00)
[2021-07-07 16:02] LABS: CREATINE KINASE MB 0.3 NG/ML (<6.6)
[2021-07-07 16:30] LABS: BAND NEUTROPHILS 9 %; BASOPHILS % (MANUAL) 0 %; EOSINOPHILS % (MANUAL) 0 %; LYMPHOCYTES % (MANUAL) 4 %; MONOCYTES % (MANUAL) 3 %; NEUTROPHILS % (MANUAL) 84 %; RBC MORPH NORMAL
[2021-07-07] MEDS ORDERED: cefTRIAXone 1 GM PRE-MIX 50 ML IV ONE (16:30)
[2021-07-07] MEDS ORDERED: AZITHROMYCIN INJECTION 500 MG in NS (IVPB) 250 ML IV ONE (16:30)
--- NOTE | 2021-07-07 16:37 | Diagnostic Imaging Report ---
Procedure: CT head without contrast. Technique: Multiple contiguous axial images were obtained through the brain without the use of intravenous contrast. Auto Exposure Controls were utilized during the CT exam to meet ALARA standards for radiation dose reduction. Indication: Fall with headache. Comparison: None. Discussion: No intracranial hemorrhage, mass, midline shift or hydrocephalus. The ventricles and sulci are normal size and configuration for age. The visualized orbits, paranasal sinuses, mastoid air cells and calvarium are unremarkable. Impression: Negative head CT. Dictated by: Dictated on workstation # [id number]
--- NOTE | 2021-07-07 16:44 | Diagnostic Imaging Report ---
INDICATION: Fever, elev d-dimer, fall, hypoxia CTA CHEST, ABDOMEN AND PELVIS: Thin axial sections through the chest, abdomen and pelvis are obtained following intravenous contrast bolus. Multiplanar MIP images were reconstructed and reviewed. All CT scans use one or more of the following dose optimizing techniques: automated exposure control, MA and/or KvP adjustment based on patient size and exam type or iterative reconstruction. COMPARISON: None. FINDINGS: CTA CHEST: The pulmonary arteries are diagnostic to the lobar level. No filling defects are seen to indicate emboli. There is mild cardiomegaly. The aorta may be mildly ectatic but no dissection or janet aneurysm is seen. No mediastinal adenopathy is appreciated. There is a large hiatal hernia. There is no axillary adenopathy. There are multifocal airspace consolidations in the left upper lobe with associated groundglass opacities. Additional groundglass opacities are seen about the lungs, bilaterally. There is no pleural effusion and no pneumothorax. No central endobronchial lesions are seen. There are degenerative changes in the spine. No acute osseous abnormality is seen. CT ABDOMEN AND PELVIS: The liver demonstrates no focal lesions. Cholecystectomy clips are noted. The spleen appears normal. The pancreas is mildly atrophic but otherwise unremarkable. The adrenal glands appear normal. The kidneys demonstrate no enhancing lesions. There is a simple appearing small cyst in the inferior right kidney. The bowel loops are nondistended without obstruction. The appendix is normal. Multiple hyperdensities are seen in the cecum, likely ingested medication. There is moderate stool in the colon. A Durand catheter is in the nondistended urinary bladder. No free fluid or free air is seen. No acute osseous abnormality is seen. There is posterior fusion of L4-L5. There are degenerative changes in the lumbar spine, most severe at L3-L4. IMPRESSION: 1. No pulmonary embolus. 2. Multifocal airspace consolidation in the left upper lobe with groundglass opacities, bilaterally. This is most compatible with pneumonia. Recommend follow-up to resolution to exclude underlying neoplasm. 3. Large hiatal hernia. Dictated by: Dictated on workstation # [id number]
--- NOTE | 2021-07-07 16:44 | Diagnostic Imaging Report ---
Indication: Dyspnea and hypoxia. Comparison: 11/15/2020. Discussion: Single portable upright view of the chest was obtained. Dense consolidation noted within the left mid to lower lung consistent with pneumonia. Hiatal hernia is noted. Normal heart size. The right lung is well-aerated. No pleural fluid or pneumothorax. No osseous abnormality. Impression: Severe consolidation within the left mid to lower lung consistent with pneumonia. Dictated by: Dictated on workstation # [id number]
[2021-07-07] MEDS ORDERED: IBUPROFEN 800 MG (MOTRIN) TAB PO PRN (17:45)
[2021-07-07] MEDS ORDERED: ONDANSETRON 4 MG/2 ML (SDV) Z0FRAN IVP PRN (17:45)
[2021-07-07 17:52] VITALS: BP 124/76
[2021-07-07] MEDS: LACTATED RINGERS 1,000 ML IV SCH (18:50)
[2021-07-07] MEDS ORDERED: RT-ALBUTEROL/IPRATROPIUM 3 ML (DUONEB) VIAL INH PRN (19:30)
[2021-07-07 20:00] VITALS: BP 116/66
[2021-07-07] MEDS: RT-ALBUTEROL/IPRATROPIUM 3 ML (DUONEB) VIAL INH SCH (21:33)
[2021-07-08] VITALS (7 sets, daily range): BP systolic 117–144; BP diastolic 57–80
[2021-07-08] MEDS: LACTATED RINGERS 1,000 ML IV SCH ×4 (01:24→21:06)
[2021-07-08] MEDS: RT-ALBUTEROL/IPRATROPIUM 3 ML (DUONEB) VIAL INH SCH ×4 (02:09→21:42)
[2021-07-08 06:28] LABS: BASOPHILS % (AUTO) 0 % (0-10); EOSINOPHILS % (AUTO) 0 % (0-10); HEMATOCRIT 27 % (35-52); HEMOGLOBIN 8.6 g/dL (11.5-16.0); LYMPHOCYTES % (AUTO) 5 % (12-44); MEAN CORPUSCULAR HEMOGLOBIN 30 pg (25-34); MEAN CORPUSCULAR HGB CONC 32 g/dL (32-36); MEAN CORPUSCULAR VOLUME 94 fL (80-99); MEAN PLATELET VOLUME 10.6 fL (9.0-12.2); MONOCYTES # (AUTO) 0.7 10^3/uL (0.0-1.0); MONOCYTES % (AUTO) 4 % (0-12); NEUTROPHILS # (AUTO) 16.4 10^3/uL (1.8-7.8); NEUTROPHILS % (AUTO) 90 % (42-75); PLATELET COUNT 204 10^3/uL (130-400); WHITE BLOOD COUNT 18.2 10^3/uL (4.3-11.0)
[2021-07-08 06:43] LABS: CALCIUM 8.1 MG/DL (8.5-10.1)
[2021-07-08 06:45] LABS: TOTAL PROTEIN 5.3 GM/DL (6.4-8.2)
[2021-07-08 06:47] LABS: BILIRUBIN,TOTAL 0.4 MG/DL (0.1-1.0)
[2021-07-08 06:48] LABS: CREATININE SERUM 0.67 MG/DL (0.60-1.30)
--- NOTE | 2021-07-08 08:43 | History & Physical ---
History of Present Illness History of Present Illness Reason for visit/HPI PT IS A 65 Y/O FEMALE WHO IS A PATIENT IN MY MEDICAL PRACTICE USUALLY SEEN BY THE NURSE PRACTITIONER. SHE REPORTS THAT SHE STARTED TO FEEL POORLY FOR A FEW DAYS, WORSENING AND BECAME SO INCREASINGLY WEAK THAT SHE WAS ADMITTED TO THE HOSPITAL FOR PNEUMONIA WITH ELEVATED WHITE COUNT. Date of Admission July 07, 2021 at 16:48 Date Seen by a Provider: July 08, 2021 Time Seen by a Provider: 08:00 Attending Physician Akira Armstrong MD Admitting Physician Akira Armstrong MD Consult Allergies and Home Medications Allergies Coded Allergies: No Known Drug Allergies (Unverified , 01/10/20) Patient Home Medication List Home Medication List Reviewed: Yes Bupropion HCl (Bupropion Xl) 150 Mg Tab.er.24h, 150 MG PO DAILY, (Reported) Entered as Reported by: IAN FONTAINE on 11/30/181416 Last Action: Reviewed Escitalopram Oxalate (Escitalopram Oxalate) 10 Mg Tablet, 10 MG PO DAILY, (Reported) Entered as Reported by: IAN FONTAINE on 11/30/181416 Gabapentin (Gabapentin) 600 Mg Tablet, 600 MG PO QID, (Reported) Entered as Reported by: IAN FONTAINE on 11/30/181416 Last Action: Reviewed Hydrochlorothiazide (Hydrochlorothiazide) 12.5 Mg Tablet, 12.5 MG PO DAILY, (Reported) Entered as Reported by: IAN FONTAINE on 01/10/20 1037 Hydrocodone/Acetaminophen (Hydrocodone-Acetamin 10-325 mg) 1 Each Tablet, 1 EACH PO TID, (Reported) Entered as Reported by: IAN FONTAINE on 01/10/20 1037 Levothyroxine Sodium (Levothyroxine Sodium) 75 Mcg Tablet, 75 MCG PO DAILY, (Reported) Entered as Reported by: KASEY MARTINEZ on 03/19/15 0934 Losartan Potassium (Losartan Potassium) 25 Mg Tablet, 25 MG PO DAILY, (Reported) Entered as Reported by: IAN FONTAINE on 01/10/20 1037 Pantoprazole Sodium (Pantoprazole Sodium) 40 Mg Tablet.dr, 40 MG PO DAILY, (Reported) Entered as Reported by: IAN FONTAINE on 11/30/18 1417 Potassium Chloride (Potassium Chloride) 10 Meq Tab.er.prt, 10 MEQ PO DAILY, (Reported) Entered as Reported by: IAN FONTAINE on 01/10/20 1037 Pravastatin Sodium (Pravastatin Sodium) 40 Mg Tablet, 40 MG PO HS, (Reported) Entered as Reported by: KASEY MARTINEZ on 03/19/15 0937 Trazodone HCl (Trazodone HCl) 150 Mg Tablet, 150 MG PO HS, (Reported) Entered as Reported by: IAN FONTAINE on 11/30/18 1417 Past [id number] Hx Patient Social History 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 Tobacco Use?: No Use of E-Cig and/or Vaping dev: No Substance use?: No Alcohol Use?: No Pt feels they are or have been: No Immunizations Up To Date Date of Influenza Vaccine: Dec 14, 2017 Tetanus Booster (TDap): Unknown Seasonal Allergies Seasonal Allergies: No Current Status status: No status: No Advance Directives: No Communicates: Verbally Primary Language: Yemeni Preferred Spoken Language: Yemeni Is interpretation needed?: No Sensory deficits: Vision impairment Implanted or Applied Medical D: CPAP Past Medical History Surgeries: Eye Surgery, Gallbladder, Orthopedic Pneumonia, Sleep Apnea Currently Using CPAP: Yes High Cholesterol, Hypertension Headaches /Migraines 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 Sexually Transmitted Disease: No HIV/AIDS: No Gastroesophageal Reflux, Hiatal Hernia, Irritable Bowel Arthritis, Chronic Back Pain Hypothyroidsim Loss of Vision: Denies Hearing Impairment: Denies Anxiety, Depression Blood Disorders: No Adverse Reaction/Blood Tranf: No (N/A) Family Medical History Reviewed and Corrections made Heart Disease SOCIAL HISTORY: PAST SURGICAL HISTORY: -BILATERAL CATARACTS 01/2020 -EGD 12/2018 -COLONOSCOPY 03/2015 -CHOLECYSTECTOMY -BACK SURGERY -R KNEE SURGERY/ARTHROSCOPY 2019 -BILATERAL BUNIONECTOMY -LEFT HEEL SPUR Review of Systems Constitutional: No chills; fever, malaise, weakness EENTM: No hoarseness, No throat pain Respiratory: cough, dyspnea on exertion, short of breath Cardiovascular: chest pain Gastrointestinal: No abdominal pain, No constipation, No diarrhea, No nausea, No vomiting Genitourinary: no symptoms reported Musculoskeletal: No muscle weakness Skin: no symptoms reported Psychiatric/Neurological: Denies Anxiety, Denies Depressed, Denies Weakness All Other Systems Reviewed Negative Unless Noted: Yes Physical Exam Vital Signs Vital Signs - First Documented 07/07/21 15:09 Temp 37.9 Pulse 118 Resp 20 B/P (MAP) 148/94 (112) Pulse Ox 97 O2 Delivery Nasal Cannula O2 Flow Rate 2.00 Capillary Refill : Less Than 3 Seconds Height, Weight, BMI Height: 5'5.00" Weight: 230lbs. oz. 104.885595ix; 36.68 BMI Method:Stated General Appearance: No Apparent Distress, WD/WN HEENT: PERRL/EOMI, Pharynx Normal Neck: Full Range of Motion, Non Tender, Supple Respiratory: Chest Non Tender, Crackles (LEFT LOWER LOBE AND LEFT UPPER), Decreased Breath Sounds Cardiovascular: Regular Rate, Rhythm Gastrointestinal: Normal Bowel Sounds, Non Tender, Soft Rectal: Deferred Extremity: Normal Capillary Refill, Non Tender, No Calf Tenderness, No Pedal Edema Neurologic/Psychiatric: Alert, Oriented x3, No Motor/Sensory Deficits, Normal Mood/Affect Skin: Normal Color, Warm/Dry Lymphatic: No Adenopathy Assessment/Plan Assessment and Plan LEFT UPPER LOBE PNEUMONIA RESPIRATORY DISTRESS LEUKOCYTOSIS ANEMIA HYPOKALEMIA ELEVATED PROCALCITONIN ELEVATED CRP HYPERTENSION DEPRESSION GERD INSOMNIA FALL AT HOME LEFT UPPER LOBE PNEUMONIA WITH RESPIRATORY DISTRESS - IV ANTIBIOTICS, AZITHROMYCIN AND CEFDINIR LEUKOCYTOSIS - IMPROVED FROM ADMISSION, MONITOR LABS ANEMIA - WORSENING - MONITOR, MAY BE DILUTION. HYPOKALEMIA - REPLACE ORALLY ELEVATED PROCALCITONIN ELEVATED CRP HYPERTENSION - MONITOR PRESSURES, RESTART MEDICATIONS ONCE RECONCILED. DEPRESSION - MONITOR PRESSURES, RESTART MEDICATIONS ONCE RECONCILED. GERD - PPI THERAPY INSOMNIA - FALL AT HOME DVT PROPHYLAXIS WITH SCD'S GI PROPHYLAXIS WITH PPI THERAPY Admission Diagnosis LEFT UPPER LOBE PNEUMONIA RESPIRATORY DISTRESS LEUKOCYTOSIS ANEMIA HYPOKALEMIA ELEVATED PROCALCITONIN ELEVATED CRP HYPERTENSION DEPRESSION GERD INSOMNIA FALL AT HOME Admission Status: Inpatient Order (span 2 midnights) Reason for Inpatient Admission: INPATIENT ADMISSION FOR PNEUMONIA WITH RESPIRATORY DISTRESS AKIRA ARMSTRONG MD July 08, 2021 08:43
[2021-07-08] MEDS: cefTRIAXone 1 GM PRE-MIX 50 ML IV SCH (08:44)
[2021-07-08] MEDS ORDERED: KCL 20 MEQ TAB (K-DUR) PO NR (09:01)
[2021-07-08] MEDS ORDERED: AZITHROMYCIN INJECTION 500 MG in NS (IVPB) 250 ML IV SCH (10:00)
[2021-07-08] MEDS: LACTOBACILLUS ACIDOPHILUS (PROBIOTIC) CAPSULE PO SCH ×3 (13:34→17:33)
[2021-07-09] MEDS: RT-ALBUTEROL/IPRATROPIUM 3 ML (DUONEB) VIAL INH SCH ×4 (02:45→21:07)
[2021-07-09 03:49] VITALS: BP 164/79
[2021-07-09] MEDS: LACTATED RINGERS 1,000 ML IV SCH ×3 (05:17→19:50)
[2021-07-09 05:55] LABS: BASOPHILS % (AUTO) 0 % (0-10); EOSINOPHILS % (AUTO) 0 % (0-10); HEMATOCRIT 26 % (35-52); HEMOGLOBIN 8.2 g/dL (11.5-16.0); LYMPHOCYTES % (AUTO) 8 % (12-44); MEAN CORPUSCULAR HEMOGLOBIN 29 pg (25-34); MEAN CORPUSCULAR HGB CONC 31 g/dL (32-36); MEAN CORPUSCULAR VOLUME 94 fL (80-99); MEAN PLATELET VOLUME 10.4 fL (9.0-12.2); MONOCYTES # (AUTO) 0.3 10^3/uL (0.0-1.0); MONOCYTES % (AUTO) 3 % (0-12); NEUTROPHILS # (AUTO) 10.1 10^3/uL (1.8-7.8); NEUTROPHILS % (AUTO) 88 % (42-75); PLATELET COUNT 206 10^3/uL (130-400); WHITE BLOOD COUNT 11.4 10^3/uL (4.3-11.0)
[2021-07-09 06:12] LABS: POTASSIUM 3.4 MMOL/L (3.6-5.0)
[2021-07-09 06:13] LABS: CALCIUM 8.5 MG/DL (8.5-10.1)
[2021-07-09 06:14] LABS: TOTAL PROTEIN 5.5 GM/DL (6.4-8.2)
[2021-07-09 06:16] LABS: BILIRUBIN,TOTAL 0.2 MG/DL (0.1-1.0)
[2021-07-09 06:18] LABS: CREATININE SERUM 0.63 MG/DL (0.60-1.30)
[2021-07-09 08:21] VITALS: BP 171/73
--- NOTE | 2021-07-09 08:23 | Diagnostic Imaging Report ---
EXAMINATION: Chest 2 view HISTORY: Pneumonia COMPARISON: 07/07/2021 FINDINGS: Airspace opacities in the left lung have improved. There is a small left effusion. No pneumothorax. Heart size is normal. There is a hiatal hernia. IMPRESSION: 1. Improving airspace opacities in the left lung consistent with pneumonia. Dictated by: Dictated on workstation # [id number]
[2021-07-09] MEDS: cefTRIAXone 1 GM PRE-MIX 50 ML IV SCH (08:29)
[2021-07-09] MEDS: LOSARTAN 25 MG (COZAAR) TAB PO SCH (08:29)
[2021-07-09] MEDS: LACTOBACILLUS ACIDOPHILUS (PROBIOTIC) CAPSULE PO SCH ×3 (08:29→17:15)
--- NOTE | 2021-07-09 08:36 | Progress Note ---
Subjective Subjective Date Seen by Provider: July 09, 2021 Time Seen by Provider: 08:00 PT REPORTS THAT SHE FEELS MUCH BETTER TODAY. SHE DENIES CHEST PAIN SHE DENIES SHORTNESS OF BREATH OFF OF THE OXYGEN. Review of Systems General: No Chills; Fatigue Pulmonary: No Dyspnea; Cough Cardiovascular: No: Chest Pain, Palpitations Gastrointestinal: No: Nausea, Abdominal Pain Genitourinary: No Dysuria Neurological: Weakness; No: Confusion All Other Systems Reviewed All Other Systems Reviewed: Yes Objective Exam Vital Signs Vital Signs Date Time Temp Pulse Resp B/P (MAP) Pulse Ox O2 Delivery O2 Flow Rate FiO2 07/09/21 03:49 36.0 88 18 164/79 (107) 100 Nasal Cannula 2.00 07/09/21 02:45 94 Nasal Cannula 2.00 07/09/21 01:00 80 07/09/21 00:00 35.9 07/08/21 23:46 91 14 141/75 (97) 100 Nasal Cannula 2.00 07/08/21 21:43 94 Nasal Cannula 2.00 07/08/21 20:00 96 Nasal Cannula 2.00 07/08/21 19:33 36.9 89 16 134/80 (98) 97 Nasal Cannula 2.00 07/08/21 19:00 86 07/08/21 16:06 36.6 92 16 144/78 (100) 93 Room Air 07/08/21 15:16 94 Nasal Cannula 2.00 07/08/21 12:52 89 07/08/21 11:17 36.5 87 18 117/73 (88) 98 Nasal Cannula 2.00 07/08/21 10:06 94 Room Air I & O 07/09/21 07:00 Intake Total 3030 ml Output Total 2250 ml Balance 780 ml General Appearance: No Apparent Distress, WD/WN HEENT: PERRL/EOMI, Pharynx Normal Neck: Full Range of Motion, Non Tender, Supple Respiratory: Chest Non Tender, Crackles (LEFT LOWER LOBE AND LEFT UPPER), Decreased Breath Sounds Cardiovascular: Regular Rate, Rhythm Gastrointestinal: Normal Bowel Sounds, Non Tender, Soft Rectal: Deferred Back: No CVA Tenderness, No Vertebral Tenderness Extremity: Normal Capillary Refill, Non Tender, No Calf Tenderness, No Pedal Edema Neurologic/Psychiatric: Alert, Oriented x3, No Motor/Sensory Deficits, Normal Mood/Affect Skin: Normal Color, Warm/Dry Lymphatic: No Adenopathy Results Lab Laboratory Tests 07/09/21 05:19: 07/09/21 05:47: White Blood Count 11.4H, Red Blood Count 2.79L, Hemoglobin 8.2L, Hematocrit 26L, Mean Corpuscular Volume 94, Mean Corpuscular Hemoglobin 29, Mean Corpuscular Hemoglobin Concent 31L, Red Cell Distribution Width 13.4, Platelet Count 206, Mean Platelet Volume 10.4, Immature Granulocyte % (Auto) 1, Neutrophils (%) (Auto) 88H, Lymphocytes (%) (Auto) 8L, Monocytes (%) (Auto) 3, Eosinophils (%) (Auto) 0, Basophils (%) (Auto) 0, Neutrophils # (Auto) 10.1H, Lymphocytes # (Auto) 1.0, Monocytes # (Auto) 0.3, Eosinophils # (Auto) 0.0, Basophils # (Auto) 0.0, Immature Granulocyte # (Auto) 0.1, Sodium Level 141, Potassium Level 3.4L, Chloride Level 104, Carbon Dioxide Level 24, Anion Gap 13, Blood Urea Nitrogen 4L, Creatinine 0.63, Estimat Glomerular Filtration Rate 97, BUN/Creatinine Ratio 6, Glucose Level 103, Calcium Level 8.5, Corrected Calcium 9.3, Total Bilirubin 0.2, Aspartate Amino Transf (AST/SGOT) 15, Alanine Aminotransferase (ALT/SGPT) 12, Alkaline Phosphatase 99, Total Protein 5.5L, Albumin 3.0L Microbiology 07/07/21 Blood Culture - Preliminary, Resulted No growth 07/07/21 Urine Culture - Final, Complete NO GROWTH 07/07/21 Throat Culture - Final, Complete No Beta Strep isolated Assessment/Plan Assessment/Plan Admission Dx LEFT UPPER LOBE PNEUMONIA RESPIRATORY DISTRESS LEUKOCYTOSIS ANEMIA HYPOKALEMIA ELEVATED PROCALCITONIN ELEVATED CRP HYPERTENSION DEPRESSION GERD INSOMNIA FALL AT HOME Assessment and Plan LEFT UPPER LOBE PNEUMONIA RESPIRATORY DISTRESS LEUKOCYTOSIS ANEMIA HYPOKALEMIA ELEVATED PROCALCITONIN ELEVATED CRP HYPERTENSION DEPRESSION GERD INSOMNIA FALL AT HOME LEFT UPPER LOBE PNEUMONIA WITH RESPIRATORY DISTRESS - IV ANTIBIOTICS, AZITHROMYCIN AND CEFDINIR LEUKOCYTOSIS - IMPROVED FROM ADMISSION, MONITOR LABS ANEMIA - WORSENING - MONITOR, MAY BE DILUTION. - PLANNING ON IRON PANEL TODAY HYPOKALEMIA - REPLACE ORALLY ELEVATED PROCALCITONIN ELEVATED CRP HYPERTENSION - MONITOR PRESSURES, RESTART LOSARTAN AND HCTZ DEPRESSION - MONITOR PRESSURES, RESTART MEDICATIONS ONCE RECONCILED. GERD - PPI THERAPY INSOMNIA - FALL AT HOME DVT PROPHYLAXIS WITH SCD'S GI PROPHYLAXIS WITH PPI THERAPY Admission Dx LEFT UPPER LOBE PNEUMONIA RESPIRATORY DISTRESS LEUKOCYTOSIS ANEMIA HYPOKALEMIA ELEVATED PROCALCITONIN ELEVATED CRP HYPERTENSION DEPRESSION GERD INSOMNIA FALL AT HOME Clinical Quality Measures Admission Status Admission Dx LEFT UPPER LOBE PNEUMONIA RESPIRATORY DISTRESS LEUKOCYTOSIS ANEMIA HYPOKALEMIA ELEVATED PROCALCITONIN ELEVATED CRP HYPERTENSION DEPRESSION GERD INSOMNIA FALL AT HOME AKIRA WHARTON MD July 09, 2021 08:36
[2021-07-09] MEDS: PANTOPRAZOLE 40 MG (PROTONIX) TAB PO SCH (09:30)
[2021-07-09 11:42] VITALS: BP 179/86
[2021-07-09] MEDS ORDERED: OMEP20TA33 PO (12:14)
[2021-07-09] MEDS ORDERED: ASCO-262 PO (12:14)
[2021-07-09] MEDS ORDERED: MELA10TA2 PO (12:14)
[2021-07-09] MEDS ORDERED: NF-VITD400 PO (12:14)
[2021-07-09] MEDS ORDERED: ERGO1250 PO (12:14)
[2021-07-09] MEDS ORDERED: CHOL10007 PO (12:16)
[2021-07-09] MEDS: AZITHROMYCIN 250 MG TAB (ZITHROMAX) PO SCH (12:24)
[2021-07-09] MEDS ORDERED: amLODIPine 5 MG (NORVASC) TAB PO ONE (13:45)
[2021-07-09] MEDS ORDERED: amLODIPine 5 MG (NORVASC) TAB ONE (13:48)
[2021-07-09 16:00] VITALS: BP 178/82
[2021-07-09 20:05] VITALS: BP_SYST 163; BP_SYST 191; BP_DIAS 92; BP_DIAS 94
[2021-07-10 00:18] VITALS: BP 140/71
[2021-07-10] MEDS: RT-ALBUTEROL/IPRATROPIUM 3 ML (DUONEB) VIAL INH SCH ×2 (03:02→07:54)
[2021-07-10 04:10] VITALS: BP 158/83
[2021-07-10 05:30] LABS: BASOPHILS % (AUTO) 0 % (0-10); EOSINOPHILS # (AUTO) 0.1 10^3/uL (0.0-0.3); EOSINOPHILS % (AUTO) 1 % (0-10); HEMATOCRIT 31 % (35-52); HEMOGLOBIN 10.2 g/dL (11.5-16.0); LYMPHOCYTES # (AUTO) 1.1 10^3/uL (1.0-4.0); LYMPHOCYTES % (AUTO) 14 % (12-44); MEAN CORPUSCULAR HEMOGLOBIN 30 pg (25-34); MEAN CORPUSCULAR HGB CONC 33 g/dL (32-36); MEAN CORPUSCULAR VOLUME 92 fL (80-99); MEAN PLATELET VOLUME 10.1 fL (9.0-12.2); MONOCYTES # (AUTO) 0.3 10^3/uL (0.0-1.0); MONOCYTES % (AUTO) 4 % (0-12); NEUTROPHILS # (AUTO) 6.1 10^3/uL (1.8-7.8); NEUTROPHILS % (AUTO) 80 % (42-75); PLATELET COUNT 237 10^3/uL (130-400); WHITE BLOOD COUNT 7.7 10^3/uL (4.3-11.0)
[2021-07-10 05:39] LABS: ALBUMIN 3.4 GM/DL (3.2-4.5); POTASSIUM 3.1 MMOL/L (3.6-5.0)
[2021-07-10 05:41] LABS: CALCIUM 9.2 MG/DL (8.5-10.1)
[2021-07-10 05:42] LABS: TOTAL PROTEIN 6.3 GM/DL (6.4-8.2)
[2021-07-10 05:44] LABS: BILIRUBIN,TOTAL 0.3 MG/DL (0.1-1.0)
[2021-07-10 05:45] LABS: CREATININE SERUM 0.67 MG/DL (0.60-1.30)
--- NOTE | 2021-07-10 07:46 | Progress Note ---
Subjective Subjective Date Seen by Provider: July 10, 2021 Time Seen by Provider: 07:30 Patient reports she has no SOB and is breathing well off of oxygen. She denies night sweats and fevers. Review of Systems General: No Chills, No Night Sweats Pulmonary: No Dyspnea; Cough; No Pleuritic Chest Pain Cardiovascular: No: Chest Pain, Palpitations Gastrointestinal: Diarrhea; No: Nausea, Vomiting, Abdominal Pain, Melena, Hematochezia Genitourinary: No Dysuria, No Hematuria Neurological: Weakness; No: Confusion All Other Systems Reviewed All Other Systems Reviewed: Yes Objective Exam Vital Signs Vital Signs Date Time Temp Pulse Resp B/P (MAP) Pulse Ox O2 Delivery O2 Flow Rate FiO2 07/10/21 04:10 37.0 79 18 158/83 (108) 98 Room Air 07/10/21 03:02 95 Room Air 0.00 07/10/21 00:18 36.6 80 20 140/71 (94) 98 Room Air 07/09/21 21:07 94 Room Air 0.00 07/09/21 20:10 Room Air 07/09/21 20:05 36.2 85 18 191/92 (125) 95 Room Air 07/09/21 20:05 78 163/94 (117) 07/09/21 16:00 36.6 76 18 178/82 (114) 95 Room Air 07/09/21 15:26 95 Room Air 0.00 07/09/21 11:42 36.5 67 17 179/86 (117) 98 Room Air 07/09/21 08:21 36.5 89 18 171/73 (105) 92 Room Air 07/09/21 08:09 92 Room Air 0.00 07/09/21 08:02 100 Room Air I & O 07/10/21 07:00 Intake Total 2900 ml Output Total 4250 ml Balance -1350 ml General Appearance: No Apparent Distress, WD/WN HEENT: PERRL/EOMI, Pharynx Normal Neck: Full Range of Motion, Non Tender, Supple Respiratory: Chest Non Tender, No Accessory Muscle Use, Other (improved breath sounds) Cardiovascular: Regular Rate, Rhythm, No JVD Gastrointestinal: Normal Bowel Sounds, Non Tender, Soft Rectal: Deferred Back: No CVA Tenderness, No Vertebral Tenderness Extremity: Normal Capillary Refill, Non Tender, No Calf Tenderness, No Pedal Edema Neurologic/Psychiatric: Alert, Oriented x3, No Motor/Sensory Deficits, Normal Mood/Affect Skin: Normal Color, Warm/Dry Lymphatic: No Adenopathy Results Lab Laboratory Tests 07/10/21 05:05: White Blood Count 7.7, Red Blood Count 3.35L, Hemoglobin 10.2#L, Hematocrit 31L, Mean Corpuscular Volume 92, Mean Corpuscular Hemoglobin 30, Mean Corpuscular Hemoglobin Concent 33, Red Cell Distribution Width 13.1, Platelet Count 237, Mean Platelet Volume 10.1, Immature Granulocyte % (Auto) 1, Neutrophils (%) (Auto) 80H, Lymphocytes (%) (Auto) 14, Monocytes (%) (Auto) 4, Eosinophils (%) (Auto) 1, Basophils (%) (Auto) 0, Neutrophils # (Auto) 6.1, Lymphocytes # (Auto) 1.1, Monocytes # (Auto) 0.3, Eosinophils # (Auto) 0.1, Basophils # (Auto) 0.0, Immature Granulocyte # (Auto) 0.0, Sodium Level 142, Potassium Level 3.1L, Chloride Level 100, Carbon Dioxide Level 27, Anion Gap 15H, Blood Urea Nitrogen 6L, Creatinine 0.67, Estimat Glomerular Filtration Rate 96, BUN/Creatinine Ratio 9, Glucose Level 100, Calcium Level 9.2, Corrected Calcium 9.7, Total Bilirubin 0.3, Aspartate Amino Transf (AST/SGOT) 15, Alanine Aminotransferase (ALT/SGPT) 13, Alkaline Phosphatase 97, Total Protein 6.3L, Albumin 3.4 Microbiology 07/07/21 Blood Culture - Preliminary, Resulted No growth 07/07/21 Urine Culture - Final, Complete NO GROWTH 07/07/21 Throat Culture - Final, Complete No Beta Strep isolated Assessment/Plan Assessment/Plan Admission Dx LEFT UPPER LOBE PNEUMONIA RESPIRATORY DISTRESS LEUKOCYTOSIS ANEMIA HYPOKALEMIA ELEVATED PROCALCITONIN ELEVATED CRP HYPERTENSION DEPRESSION GERD INSOMNIA FALL AT HOME Assessment and Plan LEFT UPPER LOBE PNEUMONIA RESPIRATORY DISTRESS LEUKOCYTOSIS ANEMIA HYPOKALEMIA ELEVATED PROCALCITONIN ELEVATED CRP HYPERTENSION DEPRESSION GERD INSOMNIA Diarrhea FALL AT HOME LEFT UPPER LOBE PNEUMONIA WITH RESPIRATORY DISTRESS - IV ANTIBIOTIC of AZITHROMYCIN AND CEFDINIR has improved her pneumonia and CXR, discharge home with antibiotics LEUKOCYTOSIS - IMPROVED FROM ADMISSION, MONITOR LABS, resolved on 07/10 ANEMIA - WORSENING - MONITOR, MAY BE DILUTION. Increased to 10.2 from 8.2 yesterday. - Infuse IV iron HYPOKALEMIA - REPLACE ORALLY ELEVATED PROCALCITONIN ELEVATED CRP HYPERTENSION - MONITOR PRESSURES, RESTART LOSARTAN AND HCTZ DEPRESSION - MONITOR PRESSURES, RESTART MEDICATIONS ONCE RECONCILED. GERD - PPI THERAPY INSOMNIA - FALL AT HOME Diarrhea -Check for C. Diff, start probiotic DVT PROPHYLAXIS WITH SCD'S GI PROPHYLAXIS WITH PPI THERAPY Clinical Quality Measures DVT/VTE Risk/Contraindication: Contraindications-Pharm: Other *list below* Contraindications-Mechi: Other *list below* Other: PT ON SCD'S - HOLDING LOVENOX DUE TO ACUTE ANEMIA Supervisory-Addendum Brief Verification & Attestation Participated in pt care: history, MDM, physical Personally performed: exam, history, MDM, supervision of care Care discussed with: Medical Student Procedures: n/a Results interpretation: Verified all documentation LEFT UPPER LOBE PNEUMONIA RESPIRATORY DISTRESS LEUKOCYTOSIS ANEMIA HYPOKALEMIA ELEVATED PROCALCITONIN ELEVATED CRP HYPERTENSION DEPRESSION GERD INSOMNIA FALL AT HOME LEFT UPPER LOBE PNEUMONIA WITH RESPIRATORY DISTRESS - IV ANTIBIOTICS, AZITHROMYCIN AND CEFDINIR LEUKOCYTOSIS - IMPROVED FROM ADMISSION, MONITOR LABS ANEMIA - WORSENING - MONITOR, MAY BE DILUTION. HYPOKALEMIA - REPLACE ORALLY ELEVATED PROCALCITONIN ELEVATED CRP HYPERTENSION - MONITOR PRESSURES, RESTART MEDICATIONS ONCE RECONCILED. DEPRESSION - MONITOR PRESSURES, RESTART MEDICATIONS ONCE RECONCILED. GERD - PPI THERAPY INSOMNIA - FALL AT HOME DVT PROPHYLAXIS WITH SCD'S GI PROPHYLAXIS WITH PPI THERAPY MALORIE PAULA July 10, 2021 07:46 AKIRA WHARTON MD July 12, 2021 12:17
[2021-07-10] MEDS: cefTRIAXone 1 GM PRE-MIX 50 ML IV SCH (08:09)
[2021-07-10] MEDS: LACTOBACILLUS ACIDOPHILUS (PROBIOTIC) CAPSULE PO SCH ×2 (08:09→13:18)
[2021-07-10] MEDS: PANTOPRAZOLE 40 MG (PROTONIX) TAB PO SCH (08:10)
[2021-07-10] MEDS: LOSARTAN 25 MG (COZAAR) TAB PO SCH (08:10)
[2021-07-10 08:23] VITALS: BP 157/84
[2021-07-10] MEDS ORDERED: IRON DEXTRAN INJECTION 1,000 MG in NS (IVPB) 250 ML IV ONE (08:30)
[2021-07-10] MEDS ORDERED: IRON DEXTRAN INJECTION 25 MG in NS (IVPB) 5.75 ML IV ONE (08:30)
[2021-07-10] MEDS ORDERED: HYDROCORTISONE 100 MG/2 ML (Solu-CORTEF) VIAL IV PRN (08:30)
[2021-07-10] MEDS ORDERED: NS IV 500 ML 500 ML IV SCH (08:30)
[2021-07-10] MEDS ORDERED: EPINEPHrine INJECTION 1 MG/ML AMP IM PRN (08:30)
[2021-07-10] MEDS ORDERED: KCL 20 MEQ TAB (K-DUR) PO ONE (08:30)
[2021-07-10] MEDS ORDERED: RT-ALBUTEROL SULF 2.5 MG/3 ML PRE-MIX VIAL IH PRN (08:30)
[2021-07-10] MEDS ORDERED: diphenhydrAMINE 50 MG/ML INJ (BENADRYL) IV PRN (08:30)
[2021-07-10] MEDS ORDERED: GABAPENTIN 600 MG (NEURONTIN) TAB PO PRN (08:30)
[2021-07-10] MEDS ORDERED: amLODIPine 5 MG (NORVASC) TAB PO SCH (09:00)
--- NOTE | 2021-07-10 09:29 | Discharge Summary ---
Diagnosis/Chief Complaint Date of Admission July 07, 2021 at 16:48 Date of Discharge 07/10/21 Discharge Date: July 10, 2021 Admission Diagnosis Admission Diagnosis LEFT UPPER LOBE PNEUMONIA RESPIRATORY DISTRESS LEUKOCYTOSIS ANEMIA HYPOKALEMIA ELEVATED PROCALCITONIN ELEVATED CRP HYPERTENSION DEPRESSION GERD INSOMNIA FALL AT HOME Discharge Diagnosis LEFT UPPER LOBE PNEUMONIA RESPIRATORY DISTRESS LEUKOCYTOSIS ANEMIA HYPOKALEMIA ELEVATED PROCALCITONIN ELEVATED CRP HYPERTENSION DEPRESSION GERD INSOMNIA FALL AT HOME Reason Hospital Visit PT IS A 65 Y/O FEMALE WHO IS A PATIENT IN MY MEDICAL PRACTICE USUALLY SEEN BY THE NURSE PRACTITIONER. SHE REPORTS THAT SHE STARTED TO FEEL POORLY FOR A FEW DAYS, WORSENING AND BECAME SO INCREASINGLY WEAK THAT SHE WAS ADMITTED TO THE HOSPITAL FOR PNEUMONIA WITH ELEVATED WHITE COUNT. Discharge Summary Discharge Physical Examination Allergies: Coded Allergies: No Known Drug Allergies (Unverified , 01/10/20) Vitals & I&Os Vital Signs Date Time Temp Pulse Resp B/P (MAP) Pulse Ox O2 Delivery O2 Flow Rate FiO2 07/10/21 15:32 36.9 78 18 166/99 98 Room Air 07/10/21 03:02 0.00 General Appearance: Alert, Oriented X3, Cooperative, No Acute Distress HEENT: Atraumatic, PERRLA Respiratory: Clear to Auscultation Cardiovascular: Regular Rate Abdominal: Normal Bowel Sounds, Soft Extremities: No Clubbing, No Cyanosis Skin: No Rashes, No Breakdown Neuro: Normal Speech, Cranial Nerves 3-12 NL Psych/Mental Status: Mental Status NL, Mood NL Hospital Course Was the Problem List Reviewed?: Yes LEFT UPPER LOBE PNEUMONIA RESPIRATORY DISTRESS LEUKOCYTOSIS ANEMIA HYPOKALEMIA ELEVATED PROCALCITONIN ELEVATED CRP HYPERTENSION DEPRESSION GERD INSOMNIA FALL AT HOME LEFT UPPER LOBE PNEUMONIA WITH RESPIRATORY DISTRESS - IV ANTIBIOTICS, AZITHROMYCIN AND CEFDINIR LEUKOCYTOSIS - IMPROVED FROM ADMISSION, MONITOR LABS ANEMIA - WORSENING - MONITOR, MAY BE DILUTION. HYPOKALEMIA - REPLACE ORALLY ELEVATED PROCALCITONIN ELEVATED CRP HYPERTENSION - MONITOR PRESSURES, RESTARTED DEPRESSION - MONITOR PRESSURES, RESTARTED GERD - PPI THERAPY INSOMNIA - FALL AT HOME DVT PROPHYLAXIS WITH SCD'S GI PROPHYLAXIS WITH PPI THERAPY Pending Labs Discharge Condition at discharge IMPROVED Instructions to patient/family Please see electronic discharge instructions given to patient. Discharge Medications Reviewed and agree with Discharge Medication list on patient's Discharge Instruction sheet Clinical Quality Measures DVT/VTE Risk/Contraindication: Contraindications-Pharm: Other *list below* Contraindications-Mechi: Other *list below* Other: PT ON SCD'S - HOLDING LOVENOX DUE TO ACUTE ANEMIA AKIRA WHARTON MD July 10, 2021 09:29
[2021-07-10] MEDS ORDERED: AMLO-250 PO (09:33)
[2021-07-10] MEDS ORDERED: CEFD300C3 PO (09:33)
[2021-07-10] MEDS ORDERED: AZIT250T12 PO (09:33)
[2021-07-10] MEDS ORDERED: LACT1CAP7 PO (09:33)
[2021-07-10] MEDS ORDERED: POTA-179 PO (09:33)
--- NOTE | 2021-07-10 09:34 | Discharge Inst-Simple/Standard ---
Discharge Inst-Standard Reconcile Patient Problems Problems Reviewed?: Yes Discharge Medications New, Converted or Re-Newed RX: Transmitted to Pharmacy Patient Instructions/Follow Up Plan of Care/Instructions/FU: 1 wk [facility] stay off of work the rest of the week Activity as Tolerated: Yes Discharge Diet: Regular Diet Health Concerns: pneumonia hypertension Return to The Hospital For: any worsening shortness of breath or other life threatening illness or injury AKIRA WHARTON MD July 10, 2021 09:34
[2021-07-10] MEDS: AZITHROMYCIN 250 MG TAB (ZITHROMAX) PO SCH (10:20)
[2021-07-10 11:51] VITALS: BP 166/99
--- NOTE | 2021-07-10 14:45 | Physician Query Clarification ---
Physician Query-General Query to Physician: The medical record reflects the following clinical scenario: The patient, in the setting of History/Risk factors, Pneumonia, Clinical Findings Admission VS/Labs: Vital Signs: HR 118, RR 20, BP 148/94, SpO2 93% sat on room air T 37.9, WBC 19.2, PCT 0.45, lactic acid 1.04 Treatment ER: lactated Ringer's 1 L, ceftriaxone IV, azithromycin IV, Question: Do you agree with the impression of Sepsis per Dr. Arcadio Matson? 1. Yes; will document Sepsis, present on admission in the Progress Notes 2. No; will continue current documentation in the Progress Notes 3. Other; will document explanation of clinical findings 4. Clinically undetermined; no explanation for clinical findings Please clarify and document your clinical opinion in the Progress Notes and Discharge Summary including the definitive and/or presumptive diagnosis, (suspected or probable), related to the above clinical findings. Please include clinical findings supporting your diagnosis. In responding to this query, please exercise your independent professional judgment. The purpose of this communication is to more accurately reflect the complexity of your patients condition. The fact that a question is asked does not imply that any particular answer is desired or expected. Please remember a lack of response to the above will prompt a phone page by CDI /coding staff Thank you for timely response to this clarification. Nathalie Vaughn MSN,RN Clinical Concrete Form Setter And Finisher [phone] [email or web address] PHYSICIAN RESPONSE: Based on the clinical findings in the record, please respond to the query above on this document as an addendum. Physician Response: Physician Response NO If you have questions please contact: Histotechnologist: Ext: Thank you for your time and cooperation. Clinical Concrete Form Setter And Finisher/Histotechnologist This is a permanent part of the medical record NATHALIE VAUGHN July 10, 2021 14:45 AKIRA WHARTON MD July 12, 2021 12:17
[2021-07-10 15:32] VITALS: BP 166/99
--- NOTE | 2021-07-12 01:00 | Physician Query Clarification ---
PQ-Uncertain Diagnosis Admission/Discharge Admission Date: July 07, 2021 at 16:48 Discharge Date: July 10, 2021 at 15:32 AKIRA Spencer MD The medical record reflects the following clinical scenario: History/Risk Factors: 65 y/o female patient admitted with pneumonia treated with antibiotics, sepsis was documented in medical record. Clinical Findings: HR-118, RR-20, BP -48/94, SpO2-93%, temp-37.9, WBC-19.2, PCT 0.45, lactic acid 1.04 . Treatment: Lactated Ringer's 1 L, ceftriaxone IV, azithromycin IV. Question: Is Sepsis a clinically valid diagnosis? Sepsis was documented in the ER provider notes, 07/07 with no further documentation in the medical record. Please document a response in Progress Note or Discharge Summary. 1. Yes, clinically valid, condition resolved. 2. No, condition ruled out. 3. Other, with explanation of clinical findings. 4. Undetermined, no explanation for clinical findings. PHYSICIAN RESPONSE Diagnosis clinically valid: No, conditon ruled out Please remember a lack of response to the above will prompt a phone page by CDI/Coding staff. In responding to this query, please exercise your independent professional judgment. The purpose of this communication is to more accurately reflect the complexity of your patients condition. The fact that a question is asked does not imply that any particular answer is desired or expected. Thank you for your timely response to this clarification. Requestors name: [ ] Phone # [ ] THIS PHYSICIAN QUERY FORM IS A PERMANENT PART OF THE MEDICAL RECORD SHINEALBERTO July 12, 2021 01:00 AKIRA WHARTON MD July 12, 2021 12:20
== END 2021-07-10 15:32 | disposition home or self-care (01) | DRG 195 ==
LOC: EDUNIT# 15:06 → ER 15:07 → 4TH 16:48
PROVIDERS: ADMIT Internal Medicine; ATTEND Family Medicine
DX: J18.9 Pneumonia, unspecified organism (principal); R09.02 Hypoxemia; R06.03 Acute respiratory distress; D72.829 Elevated white blood cell count, unspecified; D64.9 Anemia, unspecified; E87.6 Hypokalemia; R79.82 Elevated C-reactive protein (CRP); I10 Essential (primary) hypertension; F32.A Depression, unspecified; G47.00 Insomnia, unspecified; K21.9 Gastro-esophageal reflux disease without esophagitis; E78.00 Pure hypercholesterolemia, unspecified; M19.90 Unspecified osteoarthritis, unspecified site; G89.29 Other chronic pain; M54.9 Dorsalgia, unspecified; F41.9 Anxiety disorder, unspecified; E03.9 Hypothyroidism, unspecified; G43.909 Migraine, unspecified, not intractable, without status migrainosus; R19.7 Diarrhea, unspecified; Z79.890 Hormone replacement therapy; Z79.899 Other long term (current) drug therapy; Z20.822 Contact with and (suspected) exposure to COVID-19
CPT/HCPCS: 36415; 51702; 70450; 71045; 71046; 71275; 74177; 80053; 81000; 82150; 82550; 82553; 82728; 83540; 83550; 83605; 83615; 83690; 83735; 83874; 83880; 84145; 84484; 85007; 85025; 85027; 85379; 85610; 85652; 85730; 86141; 87040; 87088; 87430; 87636; 93005; 93041; 94640; 94664; 94760

== ENCOUNTER → 2021-07-24 | Outpatient (CLI) | payer MEDICARE ==
[~2021-07-24] MED LIST changes: +AMLO-250 PO; +ASCO-262 PO; +AZIT250T12 PO; +CEFD300C3 PO; +CHOL10007 PO; +ERGO1250 PO; +LACT1CAP7 PO; +MELA10TA2 PO; +NF-VITD400 PO; +OMEP20TA33 PO; +POTA-179 PO
--- NOTE | 2021-07-24 17:32 | Diagnostic Imaging Report ---
EXAMINATION: Chest 2 view. HISTORY: Cough/rib pain. COMPARISON: 07/09/2021. FINDINGS: Heart size and pulmonary vasculature are normal. Trace left pleural effusion or pleural thickening. Minimal left basilar atelectasis or scarring. No consolidation or pneumothorax. The osseous structures are intact. IMPRESSION: No acute radiographic abnormality in the chest. Dictated by: Dictated on workstation # [id number]
== END ==
LOC: RAD 17:06
PROVIDERS: ATTEND Family Medicine
DX: R05.9 Cough, unspecified (principal); R07.81 Pleurodynia
CPT/HCPCS: 71046

== ENCOUNTER 2021-10-11 14:41 | Outpatient (CLI) | payer MEDICARE | END 2021-10-11 15:05 | LOC: SLEEP 14:41 | PROVIDERS: ATTEND Family Medicine | DX: G47.33 Obstructive sleep apnea (adult) (pediatric) (principal) | CPT/HCPCS: G0399 ==

== ENCOUNTER 2022-10-08 05:38 | Outpatient (CLI) | payer MEDICARE ==
[~2022-10-08] VITALS: Ht 165.1 cm; Wt 104.4 kg
[~2022-10-08 05:38] MED LIST changes: +ENAL-70 PO; -ENAL20TA16 PO; +POTA-177 PO; -POTA10TA37 PO
[2022-10-08] MEDS ORDERED: LACTATED RINGERS 1,000 ML IV STA (08:59)
== END 2022-10-08 09:08 | disposition home or self-care (01) ==
LOC: PREOP 05:38
PROVIDERS: ATTEND Surgery
DX: Z01.818 Encounter for other preprocedural examination (principal)

== ENCOUNTER 2022-10-16 13:55 | Day surgery (SDC) | payer MEDICARE ==
[~2022-10-16] VITALS: Ht 165.1 cm; Wt 104.4 kg
[2022-10-16] MEDS ORDERED: LACTATED RINGERS 1,000 ML IV STA (14:02)
[2022-10-16 14:20] VITALS: BP 163/96
[2022-10-16] MEDS ORDERED: PROPOFOL INJECTION 50 ML IV ONE (16:04)
--- NOTE | 2022-10-16 16:08 | Progress Note-Pre Operative ---
Pre-Operative Progress Note Date H&P Reviewed: Oct 16, 2022 Time H&P Reviewed: 16:08 History & Physical: H&P Reviewed, Patient Examed, No changes noted Pre-Operative Diagnosis: screening colonoscopy QUINCY FIGUEROA DO Oct 16, 2022 16:08
--- NOTE | 2022-10-16 16:24 | Discharge Inst-Simple/Standard ---
Discharge Inst-Standard Patient Instructions/Follow Up Plan of Care/Instructions/FU: Daryn 10 years unless family history of colon cancer Activity as Tolerated: Yes Discharge Diet: Regular Diet (High fiber) QUINCY FIGUEROA DO Oct 16, 2022 16:23
[2022-10-16 16:25] VITALS: BP 151/84
--- NOTE | 2022-10-16 16:26 | Anesthesia-General Post-Op ---
MAC Patient Condition Mental Status/LOC: Same as Preop Cardiovascular: Satisfactory Nausea/Vomiting: Absent Respiratory: Satisfactory Pain: Controlled Complications: Absent Post Op Complications Complications None Follow Up Care/Instructions Patient Instructions None needed. Anesthesiology Discharge Order Discharge Order Patient is doing well, no complaints, stable vital signs, no apparent adverse anesthesia problems. No complications reported per nursing. BRUCE PINON DO Oct 16, 2022 16:26
--- NOTE | 2022-10-16 16:27 | Progress Note-Post Operative ---
Post-Operative Progess Note Surgeon (s)/Office Spec (s) Surgeon QUINCY FIGUEROA DO Office Spec: Na Pre-Operative Diagnosis screening colonoscopy Post-Operative Diagnosis Diverticulosis Procedure & Operative Findings Date of Procedure 10/16/22 Procedure Performed/Findings Colonoscopy Anesthesia Type per [facility] Estimated Blood Loss Estimated blood loss (mL): none Specimens/Packing Specimens Removed none QUINCY FIGUEROA DO Oct 16, 2022 16:27
[2022-10-16 16:30] VITALS: BP 151/84
[2022-10-16 16:50] VITALS: BP 151/84
--- NOTE | 2022-10-16 22:39 | OPERATIVE REPORT ---
DATE OF SERVICE: 10/16/2022 PREOPERATIVE DIAGNOSIS: Screening colonoscopy. POSTOPERATIVE DIAGNOSIS: Diverticulosis. PROCEDURE: Colonoscopy. SURGEON: Quincy Stearns DO ANESTHESIA: Per MDA. ESTIMATED BLOOD LOSS: None. COMPLICATIONS: None. INDICATIONS: The patient is a 67-year-old female, needing screening colonoscopy. She understands risks and benefits of procedure and wished to proceed. Consent was signed in chart. DESCRIPTION OF PROCEDURE: The patient was taken to endoscopy suite, placed in left lateral recumbent position. Timeout was performed. Digital rectal exam was performed. No palpable polyps, masses or ulcerations. Scope was inserted in the rectum and advanced all the way to the cecum with minimal difficulty. Prep was adequate. Scope was slowly retracted back. No polyps, masses or ulcerations in the cecum, ascending, transverse, descending and sigmoid colon. Sigmoid colon had some diverticulosis present. Once in the rectum, scope was retroflexed noting no other pathology. Scope was returned to its normal position, slowly withdrawn until completely removed. The patient tolerated the procedure well without complications, taken to recovery room in stable condition. RECOMMENDATIONS: The patient will need repeat colonoscopy in 10 years if benefits outweigh the risk unless family history of colon cancer, which will then be 5 years. Any issues before that, be seen at that time. With diverticulosis, would recommend high fiber diet. Job ID: [id number] DocumentID: [id number] Dictated Date: 10/16/2022 16:25:19 Leather Repairer Date: 10/16/2022 22:38:00 Dictated By: QUINCY STEARNS DO
== END 2022-10-16 16:53 | disposition home or self-care (01) ==
LOC: ENDO 13:55
PROVIDERS: ATTEND Surgery
DX: Z12.11 Encounter for screening for malignant neoplasm of colon (principal); K57.30 Diverticulosis of large intestine without perforation or abscess without bleeding; E66.9 Obesity, unspecified; G47.33 Obstructive sleep apnea (adult) (pediatric); Z68.38 Body mass index [BMI] 38.0-38.9, adult